=== PATIENT | male | born 1980 | race Caucasian/White ===

== ENCOUNTER 2018-03-12 11:33 | Inpatient (IN) | payer OTHER ==
[2018-03-12] MEDS ORDERED: Ondansetron 4 MG/2 ML SDV IVPUSH ONE (11:58)
[2018-03-12] MEDS ORDERED: Ketorolac 30 MG/ML SDV IVPUSH ONE (11:58)
[2018-03-12] MEDS ORDERED: Pantoprazole 40 MG Vial IVPUSH ONE (11:58)
[2018-03-12] MEDS ORDERED: Sodium Chloride 0.9% 2.5 ML Syringe FLUSH PRN (11:58)
[2018-03-12] MEDS ORDERED: Sodium Chloride 0.9% 1,000 ML IV ONE (11:58)
[2018-03-12] MEDS ORDERED: Sodium Chloride 0.9% 10 ML Syringe FLUSH PRN (11:58)
--- NOTE | 2018-03-12 12:01 | EDM.PDOC ---
ED HPI GENERAL MEDICAL PROBLEM - General Chief Complaint: Abdominal Pain Stated Complaint: ABDOMINAL PAIN Time Seen by Provider: 03/12/18 11:50 - History of Present Illness INITIAL COMMENTS - FREE TEXT/NARRATIVE: HISTORY AND PHYSICAL: History of present illness: The patient is a 37-year-old male with no stated medical problems who presents with complaints of epigastric pain that radiates to the right and left and around to his back that started at 11 PM last night. Patient says he had a normal day yesterday with no systemic complaints, no cough fever abdominal pain vomiting diarrhea, and had a small bowel movement yesterday that was normal for him and a normal one the day before that was not black or bloody the patient does not drink alcohol and has no history of food intolerance. He says he ate normally and went to bed and began to have this pain as he was trying to go to sleep. He had no chest pain or shortness of breath but he has had the sweats but no documented fever. The patient has a history of using large amounts of Tums in the past and has never been evaluated by a physician. He has no GI or abdominal surgical history. Review of systems: As per history of present illness and below otherwise all systems reviewed and negative. Past medical history: As per history of present illness and as reviewed below otherwise noncontributory. Surgical history: As per history of present illness and as reviewed below otherwise noncontributory. Social history: No reported history of drug or alcohol abuse. Family history: As per history of present illness and as reviewed below otherwise noncontributory. Physical exam: General: Well-developed well-nourished man who is nontoxic and vital signs are noted by me HEENT: Atraumatic, normocephalic, pupils reactive, negative for conjunctival pallor or scleral icterus, mucous membranes moist, throat clear, neck supple, nontender, trachea midline. Lungs: Clear to auscultation, breath sounds equal bilaterally, chest nontender. Heart: S1S2, regular rate and rhythm no overt murmurs Abdomen: Soft, nondistended, the patient has discrete tenderness in the epigastrium and right upper quadrant but no lower abdominal tenderness. There is no rebound or guarding and bowel sounds are hypoactive. Negative for masses or hepatosplenomegaly. Negative for costovertebral tenderness. Pelvis: Stable nontender. Genitourinary: Deferred. Rectal: Deferred. Extremities: Atraumatic, negative for cords or calf pain. Neurovascular unremarkable. Neuro: Awake, alert, oriented. Cranial nerves II through XII unremarkable. Cerebellum unremarkable. Motor and sensory unremarkable throughout. Exam nonfocal. Diagnostics: EKG CBC CMP amylase lipase H. pylori UA abdominal x-rays CT scan of the abdomen and pelvis Therapeutics: IV fluids Protonix Toradol Dilaudid Zosyn She tells nursing that the medications took the edge off but he is still having discomfort. I will give him some Dilaudid and plan on CT scan of the abdomen and pelvis to evaluate gallbladder pancreas and upper abdominal areas CT scan results were discussed with the patient and with our surgeon certified lactation counselor Dr. Christian at 1532. Patient is aware that he needs antibiotics and Dr. Christian would like Zosyn. She is currently finishing a clinic and will see the patient and anesthesia is here to evaluate the patient. He last ate toast at 10 AM. Impression: Acute appendicitis, H. pylori positive Definitive disposition and diagnosis as appropriate pending reevaluation and review of above. abdominal pain Pain Score (Numeric/FACES): 9 - Related Data Allergies Allergy/AdvReac Type Severity Reaction Status Date / Time No Known Allergies Allergy Verified 03/12/18 11:45 Home Meds: Home Meds . [No Known Home Meds] 03/12/18 [History] Past Medical History - Past Health History Medical/Surgical History: Denies Medical/Surgical History - Infectious Disease History Infectious Disease History: Reports: Chicken Pox Social & Family History - Family History Family Medical History: Noncontributory - Tobacco Use Smoking Status *Q: Never Smoker - Recreational Drug Use Recreational Drug Use: No ED ROS GENERAL - Review of Systems Review Of Systems: ROS reveals no pertinent complaints other than HPI. ED EXAM, GENERAL - Physical Exam Exam: See Below (See dictation) Course - Vital Signs Last Recorded V/S: Last Vital Signs Temp 36.7 C 03/12/18 11:45 Pulse 70 03/12/18 13:30 Resp 16 03/12/18 13:30 BP 112/64 03/12/18 13:30 Pulse Ox 96 03/12/18 13:30 - Orders/Labs/Meds Orders: Active Orders 24 hr Category Date Time Status Patient Status [ADT] Stat ADT 03/12/18 15:36 Ordered EKG Documentation Completion [RC] STAT Care 03/12/18 11:57 Active UA W/MICROSCOPIC [URIN] Stat Lab 03/12/18 13:00 Ordered Lactated Ringers @ 150 MLS/HR(1,000ml) Med 03/12/18 15:45 Ordered Lactated Ringers [Ringers, Lactated] 1,000 ml IV ASDIRECTED Piperacillin/Tazobactam [Piperacil-Tazobact] 3.375 gm Med 03/12/18 15:33 Active Sodium Chloride 0.9% [Normal Saline] 50 ml IV ONETIME Sodium Chloride 0.9% [Saline Flush] Med 03/12/18 11:58 Active 10 ml FLUSH ASDIRECTED PRN Sodium Chloride 0.9% [Saline Flush] Med 03/12/18 11:58 Active 2.5 ml FLUSH ASDIRECTED PRN Saline Lock Insert [OM.PC] Stat Oth 03/12/18 11:57 Ordered Medication Orders Piperacillin Sod/Tazobactam (Sod 3.375 gm/ Sodium Chloride) 50 mls @ 100 mls/ hr IV ONETIME ONE Stop: 03/12/18 16:02 Lactated Ringer's (Ringers, Lactated) 1,000 mls @ 150 mls/hr IV ASDIRECTED MARCIA Sodium Chloride (Saline Flush) 10 ml FLUSH ASDIRECTED PRN PRN Reason: Keep Vein Open Sodium Chloride (Saline Flush) 2.5 ml FLUSH ASDIRECTED PRN PRN Reason: Keep Vein Open Labs: Laboratory Tests 03/12/18 03/12/18 03/12/18 Range/Units 11:50 11:50 11:50 WBC 10.82 (4.0-11.0) K/uL RBC 4.62 (4.50-5.90) M/uL Hgb 14.5 (13.0-17.0) g/dL Hct 40.4 (38.0-50.0) % MCV 87.4 (80.0-98.0) fL MCH 31.4 (27.0-32.0) pg MCHC 35.9 (31.0-37.0) g/dL RDW Std Deviation 39.3 (28.0-62.0) fl RDW Coeff of Justino 12 (11.0-15.0) % Plt Count 228 (150-400) K/uL MPV 9.10 (7.40-12.00) fL Neut % (Auto) 84.1 H (48.0-80.0) % Lymph % (Auto) 5.8 L (16.0-40.0) % [place] % (Auto) 9.7 (0.0-15.0) % Eos % (Auto) 0.3 (0.0-7.0) % Baso % (Auto) 0.1 (0.0-1.5) % Neut # (Auto) 9.1 H (1.4-5.7) K/uL Lymph # (Auto) 0.6 (0.6-2.4) K/uL [place] # (Auto) 1.1 H (0.0-0.8) K/uL Eos # (Auto) 0.0 (0.0-0.7) K/uL Baso # (Auto) 0.0 (0.0-0.1) K/uL Nucleated RBC % 0.0 /100WBC Nucleated RBCs # 0 K/uL Sodium 138 (136-148) mmol/L Potassium 3.9 (3.5-5.1) mmol/L Chloride 104 (98-107) mmol/L Carbon Dioxide 22.6 (21.0-32.0) mmol/L BUN 17 (7.0-18.0) mg/dL Creatinine 1.3 (0.8-1.3) mg/dL Est Cr Clr Drug Dosing 78.77 mL/min Estimated GFR (MDRD) > 60.0 ml/min Glucose 130 H (74-106) mg/dL Calcium 8.8 (8.5-10.1) mg/dL Total Bilirubin 0.8 (0.2-1.0) mg/dL AST 19 (15-37) IU/L ALT 33 (14-63) IU/L Alkaline Phosphatase 63 (46-116) U/L Total Protein 7.5 (6.4-8.2) g/dL Albumin 4.3 (3.4-5.0) g/dL Globulin 3.2 (2.0-3.5) g/dL Albumin/Globulin Ratio 1.3 (1.3-2.8) Amylase 40 (25-115) U/L Lipase 152 (73-393) U/L Urine Color Urine Appearance Urine pH (5.0-8.0) Ur Specific [place] (1.001-1.035) Urine Protein (NEGATIVE) mg/dL Urine Glucose (UA) (NEGATIVE) mg/dL Urine Ketones (NEGATIVE) mg/dL Urine Occult Blood (NEGATIVE) Urine Nitrite (NEGATIVE) Urine Bilirubin (NEGATIVE) Urine Urobilinogen (<2.0) EU/dL Ur Leukocyte Esterase (NEGATIVE) Urine RBC (0-2/HPF) Urine WBC (0-5/HPF) Ur Epithelial Cells (NONE-FEW) Urine Bacteria (NEGATIVE) H. pylori IgG Antibody POSITIVE H (NEG) 03/12/18 Range/Units 13:00 WBC (4.0-11.0) K/uL RBC (4.50-5.90) M/uL Hgb (13.0-17.0) g/dL Hct (38.0-50.0) % MCV (80.0-98.0) fL MCH (27.0-32.0) pg MCHC (31.0-37.0) g/dL RDW Std Deviation (28.0-62.0) fl RDW Coeff of Justino (11.0-15.0) % Plt Count (150-400) K/uL MPV (7.40-12.00) fL Neut % (Auto) (48.0-80.0) % Lymph % (Auto) (16.0-40.0) % [place] % (Auto) (0.0-15.0) % Eos % (Auto) (0.0-7.0) % Baso % (Auto) (0.0-1.5) % Neut # (Auto) (1.4-5.7) K/uL Lymph # (Auto) (0.6-2.4) K/uL [place] # (Auto) (0.0-0.8) K/uL Eos # (Auto) (0.0-0.7) K/uL Baso # (Auto) (0.0-0.1) K/uL Nucleated RBC % /100WBC Nucleated RBCs # K/uL Sodium (136-148) mmol/L Potassium (3.5-5.1) mmol/L Chloride (98-107) mmol/L Carbon Dioxide (21.0-32.0) mmol/L BUN (7.0-18.0) mg/dL Creatinine (0.8-1.3) mg/dL Est Cr Clr Drug Dosing mL/min Estimated GFR (MDRD) ml/min Glucose (74-106) mg/dL Calcium (8.5-10.1) mg/dL Total Bilirubin (0.2-1.0) mg/dL AST (15-37) IU/L ALT (14-63) IU/L Alkaline Phosphatase (46-116) U/L Total Protein (6.4-8.2) g/dL Albumin (3.4-5.0) g/dL Globulin (2.0-3.5) g/dL Albumin/Globulin Ratio (1.3-2.8) Amylase (25-115) U/L Lipase (73-393) U/L Urine Color YELLOW Urine Appearance CLEAR Urine pH 7.5 (5.0-8.0) Ur Specific [place] 1.020 (1.001-1.035) Urine Protein NEGATIVE (NEGATIVE) mg/dL Urine Glucose (UA) NEGATIVE (NEGATIVE) mg/dL Urine Ketones NEGATIVE (NEGATIVE) mg/dL Urine Occult Blood NEGATIVE (NEGATIVE) Urine Nitrite NEGATIVE (NEGATIVE) Urine Bilirubin NEGATIVE (NEGATIVE) Urine Urobilinogen 0.2 (<2.0) EU/dL Ur Leukocyte Esterase NEGATIVE (NEGATIVE) Urine RBC 0-1 (0-2/HPF) Urine WBC 0-1 (0-5/HPF) Ur Epithelial Cells RARE (NONE-FEW) Urine Bacteria RARE (NEGATIVE) H. pylori IgG Antibody (NEG) Meds: Medications Generic Name Dose Route Start Last Admin Trade Name Freq PRN Reason Stop Dose Admin Piperacillin Sod/Tazobactam 50 mls @ 100 mls/hr 03/12/18 15:33 Sod 3.375 gm/ Sodium Chloride IV 03/12/18 16:02 ONETIME ONE Lactated Ringer's 1,000 mls @ 150 mls/hr 03/12/18 15:45 Ringers, Lactated IV ASDIRECTED MARCIA Sodium Chloride 10 ml 03/12/18 11:58 Saline Flush FLUSH ASDIRECTED PRN Keep Vein Open Sodium Chloride 2.5 ml 03/12/18 11:58 Saline Flush FLUSH ASDIRECTED PRN Keep Vein Open Discontinued Medications Generic Name Dose Route Start Last Admin Trade Name Freq PRN Reason Stop Dose Admin Hydromorphone HCl 1 mg 03/12/18 13:41 Dilaudid IVPUSH 03/12/18 13:42 ONETIME ONE Hydromorphone HCl 1 mg 03/12/18 13:48 03/12/18 14:03 Dilaudid IVPUSH 03/12/18 13:49 1 mg ONETIME ONE Administration Sodium Chloride 1,000 mls @ 999 mls/hr 03/12/18 11:58 03/12/18 12:18 Normal Saline IV 03/12/18 12:58 999 mls/hr STAT ONE Administration Iopamidol 100 ml 03/12/18 14:29 03/12/18 14:37 Isovue Multipack-370 (76%) IVPUSH 03/12/18 14:30 100 ml ONETIME STA Administration Ketorolac Tromethamine 30 mg 03/12/18 11:58 03/12/18 12:18 Toradol IVPUSH 03/12/18 11:59 30 mg ONETIME ONE Administration Ondansetron HCl 4 mg 03/12/18 11:58 03/12/18 12:19 Zofran IVPUSH 03/12/18 11:59 Not Given ONETIME ONE Pantoprazole Sodium 80 mg 03/12/18 11:58 03/12/18 12:18 Protonix Iv IVPUSH 03/12/18 11:59 80 mg .BOLUS ONE Administration Departure - Departure Time of Disposition: 15:39 Disposition: DC/Tfer to Other 70 Condition: Good Clinical Impression: H. pylori infection Appendicitis Qualifiers: Appendicitis type: acute appendicitis Acute appendicitis type: unspecified acute appendicitis type Qualified Code(s): K35.80 - Unspecified acute appendicitis - Discharge Information Referrals: PCP,None [Primary Care Provider] - Forms: ED Department Discharge - My Orders Last 24 Hours: My Active Orders 03/12/18 11:57 EKG Documentation Completion [RC] STAT Saline Lock Insert [OM.PC] Stat 03/12/18 11:58 Sodium Chloride 0.9% [Saline Flush] 10 ml FLUSH ASDIRECTED PRN Sodium Chloride 0.9% [Saline Flush] 2.5 ml FLUSH ASDIRECTED PRN 03/12/18 13:00 UA W/MICROSCOPIC [URIN] Stat 03/12/18 15:33 Piperacillin/Tazobactam [Piperacil-Tazobact] 3.375 gm Sodium Chloride 0.9% [ Normal Saline] 50 ml IV ONETIME 03/12/18 15:36 Patient Status [ADT] Stat 03/12/18 15:45 Lactated Ringers @ 150 MLS/HR(1,000ml) Lactated Ringers [Ringers, Lactated] 1, 000 ml IV ASDIRECTED - Assessment/Plan Last 24 Hours: My Active Orders 03/12/18 11:57 EKG Documentation Completion [RC] STAT Saline Lock Insert [OM.PC] Stat 03/12/18 11:58 Sodium Chloride 0.9% [Saline Flush] 10 ml FLUSH ASDIRECTED PRN Sodium Chloride 0.9% [Saline Flush] 2.5 ml FLUSH ASDIRECTED PRN 03/12/18 13:00 UA W/MICROSCOPIC [URIN] Stat 03/12/18 15:33 Piperacillin/Tazobactam [Piperacil-Tazobact] 3.375 gm Sodium Chloride 0.9% [ Normal Saline] 50 ml IV ONETIME 03/12/18 15:36 Patient Status [ADT] Stat 03/12/18 15:45 Lactated Ringers @ 150 MLS/HR(1,000ml) Lactated Ringers [Ringers, Lactated] 1, 000 ml IV ASDIRECTED
[2018-03-12 13:10] LABS: CHLORIDE,CL 104 mmol/L (98-107); SODIUM,NA 138 mmol/L (136-148)
[2018-03-12] MEDS ORDERED: HYDROmorphone 1 MG/ML Syringe IVPUSH ONE ×2 (13:41→13:48)
--- NOTE | 2018-03-12 13:56 | CR ---
EXAMINATION: PA chest and AP and upright abdomen HISTORY: Pain. FINDINGS: The trachea is midline. The cardiomediastinal silhouette is within normal limits. No pulmonary infilt rates, effusions or pneumothorax. Osseous structures appear unremarkable. No free air under the diaphragm. There is a nonobstructive bowel gas pattern. No abnormal calcificati ons identified. No organomegaly. Visualized osseous structures appear intact. IMPRESSION: Grossly unremarkable chest and abdominal films.
[2018-03-12] MEDS ORDERED: Iopamidol 755 MG/ML 500 ML Multipack Bottle IVPUSH STA (14:29)
--- NOTE | 2018-03-12 15:03 | CT ---
CT of the abdomen and pelvis with contrast. HISTORY: Pain TECHNIQUE: Axial CT images were obtained of the abdomen and pelvis following administration of 100 mL of Isovue-370 in the left and without complication. Coronal and sagittal reconstructions obtained. FINDINGS: Dependent atelectasis noted within the lung bases. The liver, spleen, adrenal glands, and pancreas ap pear normal. Gallbladder is normal. No bulky retroperitoneal lymphadenopathy or abdominal ascites. The kidneys enhance and function symmetrically without evidence of obstructive uropathy. The large and small bowel are normal in caliber without evidence of obstruction. No focal pericolonic inflammation or stranding. The appendix is enlarged at 1.3 cm with periappendiceal stranding. The ap pendix is retrocecal. No evidence of perforation or an abscess at this time. No pelvic lymphadenopath y or significant free pelvic fluid. No suspicious osseous abnormalities identified. IMPRESSION: 1. Acute appendicitis without evidence of rupture.
[2018-03-12] MEDS ORDERED: Piperacillin/Tazobactam 3.375 GM in Sodium Chloride 0.9% 50 ML IV ONE (15:33)
[2018-03-12] MEDS ORDERED: Lactated Ringers 1,000 ML IV SCH (15:45)
[2018-03-12] MEDS ORDERED: Lidocaine 2% 5 ML SDV ONE (16:37)
[2018-03-12] MEDS ORDERED: Rocuronium 10 MG/ML 10 ML Syringe ONE (16:37)
[2018-03-12] MEDS ORDERED: Ondansetron 4 MG/2 ML SDV ONE (16:37)
[2018-03-12] MEDS ORDERED: Propofol 200 MG/20 ML SDV ONE ×6 (16:38→20:10)
[2018-03-12] MEDS ORDERED: Midazolam 1 MG/ML 2 ML SDV ONE ×2 (16:38→17:22)
[2018-03-12] MEDS ORDERED: fentaNYL 250 MCG/5 ML SDV ONE (16:38)
[2018-03-12] MEDS ORDERED: Bupivacaine 0.5% 10 ML SDV ONE (16:54)
--- NOTE | 2018-03-12 16:54 | PCM.PREANE ---
Preanesthetic Assessment - Anesthesia/Transfusion/Family Hx Anesthesia History: No Prior Anesthesia Family History of Anesthesia Reaction: Yes (Mother and Aunt both have had MH events) Transfusion History: No Prior Transfusion(s) - Review of Systems General: Weakness, Fatigue Pulmonary: No Symptoms Cardiovascular: No Symptoms Gastrointestinal: Abdominal Pain Neurological: No Symptoms Other: Reports: None - Physical Assessment O2 Sat by Pulse Oximetry: 96 Respiratory Rate: 16 Vital Signs: Last Vital Signs Temp 98.0 F 03/12/18 11:45 Pulse 78 03/12/18 16:00 Resp 16 03/12/18 16:00 BP 112/59 L 03/12/18 16:00 Pulse Ox 96 03/12/18 16:00 Height: 5 ft 10 in Weight: 97.522 kg ASA Class: 1E Mental Status: Alert & Oriented x3 Airway Class: Mallampati = 2 Dentition: Reports: Normal Dentition Thyro-Mental Finger Breadths: 2 Mouth Opening Finger Breadths: 3 ROM/Head Extension: Full Lungs: Clear to Auscultation, Normal Respiratory Effort Cardiovascular: Regular Rate, Regular Rhythm - Lab Values: Laboratory Last Values WBC 10.82 K/uL (4.0-11.0) 03/12/18 11:50 RBC 4.62 M/uL (4.50-5.90) 03/12/18 11:50 Hgb 14.5 g/dL (13.0-17.0) 03/12/18 11:50 Hct 40.4 % (38.0-50.0) 03/12/18 11:50 MCV 87.4 fL (80.0-98.0) 03/12/18 11:50 MCH 31.4 pg (27.0-32.0) 03/12/18 11:50 MCHC 35.9 g/dL (31.0-37.0) 03/12/18 11:50 RDW Std Deviation 39.3 fl (28.0-62.0) 03/12/18 11:50 RDW Coeff of Justino 12 % (11.0-15.0) 03/12/18 11:50 Plt Count 228 K/uL (150-400) 03/12/18 11:50 MPV 9.10 fL (7.40-12.00) 03/12/18 11:50 Neut % (Auto) 84.1 % (48.0-80.0) H 03/12/18 11:50 Lymph % (Auto) 5.8 % (16.0-40.0) L 03/12/18 11:50 [place] % (Auto) 9.7 % (0.0-15.0) 03/12/18 11:50 Eos % (Auto) 0.3 % (0.0-7.0) 03/12/18 11:50 Baso % (Auto) 0.1 % (0.0-1.5) 03/12/18 11:50 Neut # (Auto) 9.1 K/uL (1.4-5.7) H 03/12/18 11:50 Lymph # (Auto) 0.6 K/uL (0.6-2.4) 03/12/18 11:50 [place] # (Auto) 1.1 K/uL (0.0-0.8) H 03/12/18 11:50 Eos # (Auto) 0.0 K/uL (0.0-0.7) 03/12/18 11:50 Baso # (Auto) 0.0 K/uL (0.0-0.1) 03/12/18 11:50 Nucleated RBC % 0.0 /100WBC 03/12/18 11:50 Nucleated RBCs # 0 K/uL 03/12/18 11:50 Sodium 138 mmol/L (136-148) 03/12/18 11:50 Potassium 3.9 mmol/L (3.5-5.1) 03/12/18 11:50 Chloride 104 mmol/L (98-107) 03/12/18 11:50 Carbon Dioxide 22.6 mmol/L (21.0-32.0) 03/12/18 11:50 BUN 17 mg/dL (7.0-18.0) 03/12/18 11:50 Creatinine 1.3 mg/dL (0.8-1.3) 03/12/18 11:50 Est Cr Clr Drug Dosing 78.77 mL/min 03/12/18 11:50 Estimated GFR (MDRD) > 60.0 ml/min 03/12/18 11:50 Glucose 130 mg/dL (74-106) H 03/12/18 11:50 Calcium 8.8 mg/dL (8.5-10.1) 03/12/18 11:50 Total Bilirubin 0.8 mg/dL (0.2-1.0) 03/12/18 11:50 AST 19 IU/L (15-37) 03/12/18 11:50 ALT 33 IU/L (14-63) 03/12/18 11:50 Alkaline Phosphatase 63 U/L (46-116) 03/12/18 11:50 Total Protein 7.5 g/dL (6.4-8.2) 03/12/18 11:50 Albumin 4.3 g/dL (3.4-5.0) 03/12/18 11:50 Globulin 3.2 g/dL (2.0-3.5) 03/12/18 11:50 Albumin/Globulin Ratio 1.3 (1.3-2.8) 03/12/18 11:50 Amylase 40 U/L (25-115) 03/12/18 11:50 Lipase 152 U/L (73-393) 03/12/18 11:50 Urine Color YELLOW 03/12/18 13:00 Urine Appearance CLEAR 03/12/18 13:00 Urine pH 7.5 (5.0-8.0) 03/12/18 13:00 Ur Specific [place] 1.020 (1.001-1.035) 03/12/18 13:00 Urine Protein NEGATIVE mg/dL (NEGATIVE) 03/12/18 13:00 Urine Glucose (UA) NEGATIVE mg/dL (NEGATIVE) 03/12/18 13:00 Urine Ketones NEGATIVE mg/dL (NEGATIVE) 03/12/18 13:00 Urine Occult Blood NEGATIVE (NEGATIVE) 03/12/18 13:00 Urine Nitrite NEGATIVE (NEGATIVE) 03/12/18 13:00 Urine Bilirubin NEGATIVE (NEGATIVE) 03/12/18 13:00 Urine Urobilinogen 0.2 EU/dL (<2.0) 03/12/18 13:00 Ur Leukocyte Esterase NEGATIVE (NEGATIVE) 03/12/18 13:00 Urine RBC 0-1 (0-2/HPF) 03/12/18 13:00 Urine WBC 0-1 (0-5/HPF) 03/12/18 13:00 Ur Epithelial Cells RARE (NONE-FEW) 03/12/18 13:00 Urine Bacteria RARE (NEGATIVE) 03/12/18 13:00 H. pylori IgG Antibody POSITIVE (NEG) H 03/12/18 11:50 - Allergies Allergies/Adverse Reactions: Allergies Allergy/AdvReac Type Severity Reaction Status Date / Time desflurane Allergy Severe Anaphylactic Verified 03/12/18 16:04 Shock sevoflurane Allergy Severe Anaphylactic Verified 03/12/18 16:04 Shock succinylcholine Allergy Severe Anaphylactic Verified 03/12/18 16:04 Shock - Anesthesia Plan Free Text/Narrative:: After initially interviewing the patient I was called back to the ER by the RN. The patients mother had arrived and states both she and a niece of hers have had Malignant Hyperthermia under general anesthesia. I explained a new anesthetic plan that would include TIVA and other NON-MH triggers. Patient understands and wishes to proceed at this time. ANESTHESIA MACHINE PREP -Anesthesia circuit replaced with new one -Soda-sorb replaced x 2 -15LPM O2 flush of the anesthesia machine was performed for >70 minutes -Sevoflurane and Desflurane vaporizers were removed from the anesthesia machine -OR team was informed of the patients MH history -Esophageal temperature probe will be placed after induction for invasive temperature monitoring - Acknowledgements Anesthesia Type Planned: General Anesthesia (TIVA only, NON-MH triggers only) Pt an Appropriate Candidate for the Planned Anesthesia: Yes Alternatives and Risks of Anesthesia Discussed w Pt/Guardian: Yes Pt/Guardian Understands and Agrees with Anesthesia Plan: Yes PreAnesthesia Questionnaire - Past Health History Medical/Surgical History: Denies Medical/Surgical History HEENT History: Reports: None Cardiovascular History: Reports: None Respiratory History: Reports: None Gastrointestinal History: Reports: Other (See Below) (Acute appendicitis) Genitourinary History: Reports: None Musculoskeletal History: Reports: None Neurological History: Reports: None Psychiatric History: Reports: None Endocrine/Metabolic History: Reports: Obesity/BMI 30+ Hematologic History: Reports: None Immunologic History: Reports: None Oncologic (Cancer) History: Reports: None Dermatologic History: Reports: None - Infectious Disease History Infectious Disease History: Reports: Chicken Pox - SUBSTANCE USE Smoking Status *Q: Never Smoker Recreational Drug Use History: No - HOME MEDS Home Medications: Home Meds . [No Known Home Meds] 03/12/18 [History] - CURRENT (IN HOUSE) MEDS Current Meds: Current Medications Lactated Ringer's (Ringers, Lactated) 1,000 mls @ 150 mls/hr IV ASDIRECTED MARCIA Last Admin: 03/12/18 15:45 Dose: 150 mls/hr Sodium Chloride (Saline Flush) 10 ml FLUSH ASDIRECTED PRN PRN Reason: Keep Vein Open Sodium Chloride (Saline Flush) 2.5 ml FLUSH ASDIRECTED PRN PRN Reason: Keep Vein Open Discontinued Medications Fentanyl (Sublimaze) Confirm Administered Dose 250 mcg .ROUTE .STK-MED ONE Stop: 03/12/18 16:39 Hydromorphone HCl (Dilaudid) 1 mg IVPUSH ONETIME ONE Stop: 03/12/18 13:42 Hydromorphone HCl (Dilaudid) 1 mg IVPUSH ONETIME ONE Stop: 03/12/18 13:49 Last Admin: 03/12/18 14:03 Dose: 1 mg Sodium Chloride (Normal Saline) 1,000 mls @ 999 mls/hr IV STAT ONE Stop: 03/12/18 12:58 Last Admin: 03/12/18 12:18 Dose: 999 mls/hr Piperacillin Sod/Tazobactam (Sod 3.375 gm/ Sodium Chloride) 50 mls @ 100 mls/ hr IV ONETIME ONE Stop: 03/12/18 16:02 Last Admin: 03/12/18 15:45 Dose: 100 mls/hr Iopamidol (Isovue Multipack-370 (76%)) 100 ml IVPUSH ONETIME STA Stop: 03/12/18 14:30 Last Admin: 03/12/18 14:37 Dose: 100 ml Ketorolac Tromethamine (Toradol) 30 mg IVPUSH ONETIME ONE Stop: 03/12/18 11:59 Last Admin: 03/12/18 12:18 Dose: 30 mg Lidocaine (Xylocaine-Mpf 2%) Confirm Administered Dose 5 ml .ROUTE .STK-MED ONE Stop: 03/12/18 16:38 Midazolam HCl (Versed 1 Mg/Ml) Confirm Administered Dose 2 mg .ROUTE .STK-MED ONE Stop: 03/12/18 16:39 Ondansetron HCl (Zofran) 4 mg IVPUSH ONETIME ONE Stop: 03/12/18 11:59 Last Admin: 03/12/18 12:19 Dose: Not Given Ondansetron HCl (Zofran) Confirm Administered Dose 4 mg .ROUTE .STK-MED ONE Stop: 03/12/18 16:38 Pantoprazole Sodium (Protonix Iv) 80 mg IVPUSH .BOLUS ONE Stop: 03/12/18 11:59 Last Admin: 03/12/18 12:18 Dose: 80 mg Propofol (Diprivan 20 Ml) Confirm Administered Dose 1,200 mg .ROUTE .STK-MED ONE Stop: 03/12/18 16:39 Propofol (Diprivan 20 Ml) Confirm Administered Dose 200 mg .ROUTE .STK-MED ONE Stop: 03/12/18 16:44 Rocuronium [place] (Zemuron) Confirm Administered Dose 100 mg .ROUTE .STK-MED ONE Stop: 03/12/18 16:38
--- NOTE | 2018-03-12 16:57 | PCM.HP ---
H&P History of Present Illness - General Date of Service: 03/12/18 Admit Problem/Dx: Admission Diagnosis/Problem Admission Diagnosis/Problem Acute appendicitis Source of Information: Patient History Limitations: Reports: No Limitations - History of Present Illness Initial Comments - Free Text/Narative: Patient is a 37 year old male who developed abdominal pain last evening. It was located along the epigastric area. He was nauseated, but did not vomit. It was sharp and radiated to the rest of the abdomen. It then became more centralized. He was unable to sleep. The pain was made worse with movement. This morning the pain became sharper and crampy. It was located in the RLQ and radiated to his right flank. He denies fevers and chills. He last ate at 10 am. He had toast and some water. He came to the ER. His WBC was normal. He was tested for H pylori which was positive. A CT of the abdomen pelvis was performed that showed acute appendicitis. There was no evidence of rupture but the appendix appears retrocecal. abdominal pain Pain Score (Numeric/FACES): 9 - Related Data Allergies/Adverse Reactions: Allergies Allergy/AdvReac Type Severity Reaction Status Date / Time desflurane Allergy Severe Anaphylactic Verified 03/12/18 16:04 Shock sevoflurane Allergy Severe Anaphylactic Verified 03/12/18 16:04 Shock succinylcholine Allergy Severe Anaphylactic Verified 03/12/18 16:04 Shock Home Medications: Home Meds . [No Known Home Meds] 03/12/18 [History] Past Medical History - Past Health History Medical/Surgical History: Denies Medical/Surgical History - Infectious Disease History Infectious Disease History: Reports: Chicken Pox Social & Family History - Family History Other Family History: Mother has COPD and there is a possible family history of malignant hyperthermia - Tobacco Use Smoking Status *Q: Never Smoker - Recreational Drug Use Recreational Drug Use: No H&P Review of Systems - Review of Systems: Review Of Systems: ROS reveals no pertinent complaints other than HPI. Exam - Exam Exam: See Below - Vital Signs Vital Signs: Last Vital Signs Temp 36.7 C 03/12/18 11:45 Pulse 78 03/12/18 16:00 Resp 16 03/12/18 16:00 BP 112/59 L 03/12/18 16:00 Pulse Ox 96 03/12/18 16:00 Weight: 97.522 kg - Exam General: Alert, Oriented, Cooperative HEENT: Conjunctiva Clear, Mucosa Moist & [place], Posterior Pharynx Clear Neck: Supple, Trachea Midline Lungs: Clear to Auscultation, Normal Respiratory Effort Cardiovascular: Regular Rate, Regular Rhythm GI/Abdominal Exam: Soft, No Distention, Tender (RLQ), Other (Rebound and guarding along right flank). No: Guarding, Rigid, Rebound - Patient Data Lab Results Last 24 hrs: Laboratory Results - last 24 hr 03/12/18 03/12/18 03/12/18 Range/Units 11:50 11:50 11:50 WBC 10.82 (4.0-11.0) K/uL RBC 4.62 (4.50-5.90) M/uL Hgb 14.5 (13.0-17.0) g/dL Hct 40.4 (38.0-50.0) % MCV 87.4 (80.0-98.0) fL MCH 31.4 (27.0-32.0) pg MCHC 35.9 (31.0-37.0) g/dL RDW Std Deviation 39.3 (28.0-62.0) fl RDW Coeff of Justino 12 (11.0-15.0) % Plt Count 228 (150-400) K/uL MPV 9.10 (7.40-12.00) fL Neut % (Auto) 84.1 H (48.0-80.0) % Lymph % (Auto) 5.8 L (16.0-40.0) % Sampson % (Auto) 9.7 (0.0-15.0) % Eos % (Auto) 0.3 (0.0-7.0) % Baso % (Auto) 0.1 (0.0-1.5) % Neut # (Auto) 9.1 H (1.4-5.7) K/uL Lymph # (Auto) 0.6 (0.6-2.4) K/uL Sampson # (Auto) 1.1 H (0.0-0.8) K/uL Eos # (Auto) 0.0 (0.0-0.7) K/uL Baso # (Auto) 0.0 (0.0-0.1) K/uL Nucleated RBC % 0.0 /100WBC Nucleated RBCs # 0 K/uL Sodium 138 (136-148) mmol/L Potassium 3.9 (3.5-5.1) mmol/L Chloride 104 (98-107) mmol/L Carbon Dioxide 22.6 (21.0-32.0) mmol/L BUN 17 (7.0-18.0) mg/dL Creatinine 1.3 (0.8-1.3) mg/dL Est Cr Clr Drug Dosing 78.77 mL/min Estimated GFR (MDRD) > 60.0 ml/min Glucose 130 H (74-106) mg/dL Calcium 8.8 (8.5-10.1) mg/dL Total Bilirubin 0.8 (0.2-1.0) mg/dL AST 19 (15-37) IU/L ALT 33 (14-63) IU/L Alkaline Phosphatase 63 (46-116) U/L Total Protein 7.5 (6.4-8.2) g/dL Albumin 4.3 (3.4-5.0) g/dL Globulin 3.2 (2.0-3.5) g/dL Albumin/Globulin Ratio 1.3 (1.3-2.8) Amylase 40 (25-115) U/L Lipase 152 (73-393) U/L Urine Color Urine Appearance Urine pH (5.0-8.0) Ur Specific [place] (1.001-1.035) Urine Protein (NEGATIVE) mg/dL Urine Glucose (UA) (NEGATIVE) mg/dL Urine Ketones (NEGATIVE) mg/dL Urine Occult Blood (NEGATIVE) Urine Nitrite (NEGATIVE) Urine Bilirubin (NEGATIVE) Urine Urobilinogen (<2.0) EU/dL Ur Leukocyte Esterase (NEGATIVE) Urine RBC (0-2/HPF) Urine WBC (0-5/HPF) Ur Epithelial Cells (NONE-FEW) Urine Bacteria (NEGATIVE) H. pylori IgG Antibody POSITIVE H (NEG) 03/12/18 Range/Units 13:00 WBC (4.0-11.0) K/uL RBC (4.50-5.90) M/uL Hgb (13.0-17.0) g/dL Hct (38.0-50.0) % MCV (80.0-98.0) fL MCH (27.0-32.0) pg MCHC (31.0-37.0) g/dL RDW Std Deviation (28.0-62.0) fl RDW Coeff of Justino (11.0-15.0) % Plt Count (150-400) K/uL MPV (7.40-12.00) fL Neut % (Auto) (48.0-80.0) % Lymph % (Auto) (16.0-40.0) % Sampson % (Auto) (0.0-15.0) % Eos % (Auto) (0.0-7.0) % Baso % (Auto) (0.0-1.5) % Neut # (Auto) (1.4-5.7) K/uL Lymph # (Auto) (0.6-2.4) K/uL Sampson # (Auto) (0.0-0.8) K/uL Eos # (Auto) (0.0-0.7) K/uL Baso # (Auto) (0.0-0.1) K/uL Nucleated RBC % /100WBC Nucleated RBCs # K/uL Sodium (136-148) mmol/L Potassium (3.5-5.1) mmol/L Chloride (98-107) mmol/L Carbon Dioxide (21.0-32.0) mmol/L BUN (7.0-18.0) mg/dL Creatinine (0.8-1.3) mg/dL Est Cr Clr Drug Dosing mL/min Estimated GFR (MDRD) ml/min Glucose (74-106) mg/dL Calcium (8.5-10.1) mg/dL Total Bilirubin (0.2-1.0) mg/dL AST (15-37) IU/L ALT (14-63) IU/L Alkaline Phosphatase (46-116) U/L Total Protein (6.4-8.2) g/dL Albumin (3.4-5.0) g/dL Globulin (2.0-3.5) g/dL Albumin/Globulin Ratio (1.3-2.8) Amylase (25-115) U/L Lipase (73-393) U/L Urine Color YELLOW Urine Appearance CLEAR Urine pH 7.5 (5.0-8.0) Ur Specific [place] 1.020 (1.001-1.035) Urine Protein NEGATIVE (NEGATIVE) mg/dL Urine Glucose (UA) NEGATIVE (NEGATIVE) mg/dL Urine Ketones NEGATIVE (NEGATIVE) mg/dL Urine Occult Blood NEGATIVE (NEGATIVE) Urine Nitrite NEGATIVE (NEGATIVE) Urine Bilirubin NEGATIVE (NEGATIVE) Urine Urobilinogen 0.2 (<2.0) EU/dL Ur Leukocyte Esterase NEGATIVE (NEGATIVE) Urine RBC 0-1 (0-2/HPF) Urine WBC 0-1 (0-5/HPF) Ur Epithelial Cells RARE (NONE-FEW) Urine Bacteria RARE (NEGATIVE) H. pylori IgG Antibody (NEG) Result Diagrams: 03/12/18 11:50 03/12/18 11:50 - Problem List (1) Appendicitis SNOMED Code(s): 55055075 ICD Code: K37 - UNSPECIFIED APPENDICITIS Status: Acute Current Visit: Yes Qualifiers: Appendicitis type: acute appendicitis Acute appendicitis type: unspecified acute appendicitis type Qualified Code(s): K35.80 - Unspecified acute appendicitis (2) H. pylori infection SNOMED Code(s): 481976566 ICD Code: A04.8 - OTHER SPECIFIED BACTERIAL INTESTINAL INFECTIONS Status: Acute Current Visit: Yes Problem List Initiated/Reviewed/Updated: Yes Orders Last 24hrs: Active Orders 24 hr Category Date Time Status Patient Status [ADT] Stat ADT 03/12/18 15:36 Active EKG Documentation Completion [RC] STAT Care 03/12/18 11:57 Active UA W/MICROSCOPIC [URIN] Stat Lab 03/12/18 13:00 Ordered Lactated Ringers [Ringers, Lactated] 1,000 ml Med 03/12/18 15:45 Active IV ASDIRECTED Sodium Chloride 0.9% [Saline Flush] Med 03/12/18 11:58 Active 10 ml FLUSH ASDIRECTED PRN Sodium Chloride 0.9% [Saline Flush] Med 03/12/18 11:58 Active 2.5 ml FLUSH ASDIRECTED PRN Saline Lock Insert [OM.PC] Stat Oth 03/12/18 11:57 Ordered Medication Orders Lactated Ringer's (Ringers, Lactated) 1,000 mls @ 150 mls/hr IV ASDIRECTED MARCIA Last Admin: 03/12/18 15:45 Dose: 150 mls/hr Sodium Chloride (Saline Flush) 10 ml FLUSH ASDIRECTED PRN PRN Reason: Keep Vein Open Sodium Chloride (Saline Flush) 2.5 ml FLUSH ASDIRECTED PRN PRN Reason: Keep Vein Open Assessment/Plan Comment:: We discussed the pathophysiology of appendicitis. The treatment is appendectomy. We discussed the laparoscopic and open approaches to the case. I will start laparoscopically but should I be unable to complete it safely I will convert to open. I explained the different treatment approaches to ruptured and non-ruptured appendicitis. We discussed the risks including bleeding, infection , or damage to surrounding structures. He verbalized understanding and wishes to proceed. He will stay in house overnight and I will treat him with 2 weeks of a prev pac for the h. pylori infection.
[2018-03-12] MEDS ORDERED: HYDROmorphone 2 MG/ML SDV ONE (17:33)
[2018-03-12] MEDS ORDERED: fentaNYL 100 MCG/2 ML SDV ONE (19:44)
[2018-03-12] MEDS ORDERED: fentaNYL 100 MCG/2 ML SDV IVPUSH PRN (19:57)
[2018-03-12] MEDS ORDERED: Glycopyrrolate 0.2 MG/ML SDV ONE (20:20)
[2018-03-12] MEDS ORDERED: Neostigmine Methylsulfate 1 MG/ML 5 ML Syringe ONE (20:20)
[2018-03-12] MEDS ORDERED: Docusate Sodium 100 MG Cap PO PRN (20:34)
[2018-03-12] MEDS ORDERED: Morphine 10 MG/ML Syringe IVPUSH PRN (20:34)
[2018-03-12] MEDS ORDERED: Ondansetron 4 MG/2 ML SDV IVPUSH PRN (20:34)
[2018-03-12] MEDS ORDERED: diphenhydrAMINE 50 MG/ML SDV IVPUSH PRN (20:34)
[2018-03-12] MEDS ORDERED: Ketorolac 10 MG Tab PO SCH (20:45)
--- NOTE | 2018-03-12 20:45 | PCM.OPNOTE ---
- General Post-Op/Procedure Note Date of Surgery/Procedure: 03/12/18 Operative Procedure(s): Laparoscopic converted to open appendectomy Findings: Retrocecal base of the appendix. Appendix was inflammed, enlarged and vaughan appearing but no evidence of rupture. Pre Op Diagnosis: Appendicitis Post-Op Diagnosis: same Anesthesia Technique: General ET Tube Primary Surgeon: Samantha Christian Secondary Surgeon: Everett Cruz Reason Licensed Marine Engineer Was Necessary: Difficult anatomy Fluid Replacement, Intraop: 3,800 Output, Urine Amount: 195 EBL in mLs: 30 Condition: Stable
[2018-03-12] MEDS ORDERED: Meperidine PF 25 MG/ML Syringe IVPUSH ONE (21:13)
--- NOTE | 2018-03-12 21:44 | OR ---
SURGEON: JAY TREVIÑO MD DATE OF PROCEDURE: 03/12/2018 PREOPERATIVE DIAGNOSIS: Acute appendicitis. POSTOPERATIVE DIAGNOSIS: Acute appendicitis. PROCEDURE PERFORMED: Laparoscopic converted to open appendectomy. FURNACE AND WASH EQUIPMENT OPERATOR: Everett Cruz M.D. FLUIDS: 3800 mL of crystalloid. URINE OUTPUT: 195 mL. ESTIMATED BLOOD LOSS: 30 mL. FINDINGS: Retrocecal appendix with base of the appendix in a retrocecal position. Appendix enlarged, inflamed and khan appearing, but not grossly perforated. COMPLICATIONS: None. INDICATIONS: The patient is a 37-year-old male, who presented to the emergency room [facility] with a one-day history of abdominal pain. He had no evidence of leukocytosis, but was found to be H. pylori positive. The emergency room physician ordered a CT that showed evidence of a retrocecal appendix that appeared to be enlarged and inflamed. On physical exam, the patient was tender to palpation with rebound and guarding along the right flank. I described the pathophysiology of appendicitis with the patient. I explained to him the treatment for appendicitis is appendectomy. We discussed the laparoscopic and open approaches. I will attempt this laparoscopically, but should I be unable to perform it safely, I will convert it to open. I explained the risks including bleeding, infection, or damage to surrounding structures. The patient verbalized understanding and wishes to proceed. PROCEDURE IN DETAIL: The patient was brought into the OR and placed on the OR table in supine position. A time-out was completed verifying the patient's name, age, date of , allergies, and procedure to be performed. General endotracheal anesthesia was induced. The left arm was tucked to the patient's side and a Orellana catheter placed. The abdomen was then prepped and draped in usual sterile fashion. I anesthetized an area 3 fingerbreadths below the left subcostal margin within the midclavicular line with 0.5% Marcaine plain. A 1 cm incision was made in the skin using an 11 blade. A 5 mm optical trocar was used to gain entry into the abdomen in the left upper quadrant. All layers of the abdominal wall were visualized upon entry. The abdomen was insufflated. I then placed a 5 mm 30-degree scope into the abdomen. I inspected the area underneath my initial trocar placement. No damage to surrounding structures was noted. A 5 mm trocar was placed under direct visualization just lateral and left to the umbilicus. A 12 mm trocar was placed in the left lower quadrant under direct visualization. The patient was placed into Trendelenburg position and airplaned slightly to the left. I turned my attention to the right lower quadrant. I identified the ascending colon. I followed the teniae down to the cecum. No appendix was noted along the anterior aspect of the cecum. I brushed the surrounding small bowel out of the way and attempted to roll the colon medially. After several attempts, I was able to identify the tip of the appendix. This was grasped with an atraumatic grasper and elevated. The appendix itself was grossly inflamed, enlarged, and slightly khan appearing. It had attachments to the underside of the colon. These were able to be dissected off the appendix using gentle blunt dissection. I was then able to elevate the distal half of the appendix into my field of view. A Harmonic Scalpel was used to take down the appendiceal mesentery distally to proximally to mobilize more of my appendix. The closer I got to the base of the appendix, the more difficult it was for me to identify structures. I attempted to manipulate the appendix to allow visualization of its base. Despite careful dissection and manipulation of the appendix, I was not able to identify the base. It appeared to be not only retrocecal but inserting there as well. The decision was made to convert to open to allow better visualization of the base of the appendix. Before converting to open, I turned my attention to the 12 mm port site. This was removed and I closed the fascia at this site with an 0 Vicryl suture using a Tony Zavala passing device. I palpated the 12 mm port site and the fascia appeared to be adequately closed. I left my 5 mm trocars in and left the insufflation on. I palpated over the tip of appendix and identified where I would need to place my right lower quadrant oblique incision. I kept an atraumatic grasper on the tip of the appendix, so I could locate the appendix once I converted to open. I anesthetized the area over my right lower quadrant incision with 0.5% Marcaine plain. A 10 blade was used to make a right lower quadrant oblique incision. Cautery was used to dissect down to the level of the external oblique. This was opened using cautery. I then muscles and dissected down to the level of the peritoneum. The peritoneum was elevated and incised sharply with the Metzenbaum scissors. Entry into the abdomen was confirmed with the release of my insufflation. The gas was then turned off. I was able to identify the tip of my appendix and the atraumatic grasper to which it was attached. I placed a [place] on the appendix and removed my atraumatic grasper. Retractors were placed and I medially rotated the ascending colon. Dr. Everett Cruz was called in to assist with the case, given the difficult exposure. Once he scrubbed in, I was able to take down the retroperitoneal attachments of the cecum and identified the base of appendix. Harmonic Scalpel was used to transect the appendiceal artery proximal to the appendix itself. The base of the appendix and its insertion point were completely retrocecal. Once this was completely cleared away, a TA 60 stapling device was used to staple across the base of the appendix. To ensure good closure, I placed an Endoloop just distal to my staple line. The harmonic was then used to resect the appendix just distal to this. The appendix was then passed off the field and sent to pathology. Again, there was no evidence of rupture and there was no purulent material within the abdomen. The abdomen was irrigated copiously with normal saline, which was suctioned out. I then closed the layers of the abdominal wall with a running 3-0 Vicryl stitch in the peritoneum and layers of the fascia were closed with interrupted 0 Vicryl sutures. Darlene's fascia was closed with a running 3-0 Vicryl stitch. The skin was then closed with estephanie. I closed skin on laparoscopic port sites with estephanie. Sterile dressings were applied. All counts were complete and correct at the end of the case. The patient was transferred to PACU in stable condition. SAVANNAH SENA /[id number] BRYAN
--- NOTE | 2018-03-12 22:10 | PCM.POSTAN ---
POST ANESTHESIA ASSESSMENT - MENTAL STATUS Mental Status: Alert, Oriented - VITAL SIGNS Pulse Rate: 70 SaO2: 99 Resp Rate: 12 Blood Pressure: 115/70 - RESPIRATORY Respiratory Status: Respiratory Rate WNL, Airway Patent, O2 Saturation Stable - CARDIOVASCULAR CV Status: Pulse Rate WNL, Blood Pressure Stable - GASTROINTESTINAL GI Status: No Symptoms - POST OP HYDRATION Hydration Status: Adequate & Stable - OBSERVATIONS Free Text/Narrative:: Patient to ICU per Dr Christian. Several episodes of severe MACKENZIE were observed and the patient was placed on BiPAP. Decreased urine output is also noted in PACU.
[2018-03-12] MEDS: Lactated Ringers 1,000 ML IV SCH (22:41)
[2018-03-12] MEDS: Sucralfate 1 GM Tab PO SCH (22:49)
[2018-03-12] MEDS: Cyclobenzaprine 5 MG Tab PO SCH (22:58)
--- NOTE | 2018-03-12 23:02 | PCM.SN ---
- Free Text/Narrative Note: Patient monitored closely in PACU. He received a large amount of propofol during the case due to the family history of malignant hyperthermia. He was able to be extubated ~ 45 minutes after arrival in the PACU. He was somnolent and obstructing. According to the family he snores at home and his brother has sleep apnea. He was placed on BIPAP with improvement in his breathing. He made 300ml of urine during the case but after the first hour in the PACU he made only 30-40 ml. His Cr was elevated pre-operatively at 1.3 and his Cr was 17. He had not been drinking much fluid prior to the case. He recieved a 1.5 L bolus while in PACU. His urine appears clear yellow with some sediment. His vitals were stable in PACU. A repeat CBC and BMP was performed. His hgb dropped from 14.5 to 13.1. His BUN is down from 17 to 13. His creatinine is slightly up to 1.4 from 1.3. He was admitted to the ICU for close monitoring. His UOP over the last 30 minutes is ~ 20-30ml. A urine creatinine and sodium were sent to calculate his fractional excretion of sodium. A lactate and repeat BUN/Cr will be sent at midnight. LR is going at 125ml/hr. Will monitor closely.
[2018-03-12] MEDS ORDERED: Acetaminophen 325 MG Tab PO ONE (23:03)
[2018-03-13] MEDS: Cyclobenzaprine 5 MG Tab PO SCH ×4 (00:03→20:59)
[2018-03-13] MEDS: Piperacillin/Tazobactam 3.375 GM in Sodium Chloride 0.9% 50 ML IV SCH ×3 (00:04→15:16)
[2018-03-13] MEDS: Morphine 2 MG/ML Syringe IVPUSH PRN ×2 (00:43→16:16)
[2018-03-13] MEDS: Acetaminophen/HYDROcodone 325-5 MG Tab PO PRN ×3 (05:02→20:53)
[2018-03-13 05:58] LABS: CHLORIDE,CL 106 mmol/L (98-107); SODIUM,NA 138 mmol/L (136-148)
[2018-03-13] MEDS: Lactated Ringers 1,000 ML IV SCH ×2 (07:11→15:16)
[2018-03-13] MEDS ORDERED: Magnesium Sulfate/Water 2 GM in Premix Bag 1 BAG IV ONE (07:13)
--- NOTE | 2018-03-13 07:25 | PCM.SURGPN ---
- General Info Date of Service: 03/13/18 Date of Surgery/Procedure: 03/12/18 POD#: 1 Functional Status: Reports: Other (UOP after case marginal. Given 1.5L bolus with minimal improvement. UOP 30-50ml/hr overnight. BUN/Cr stable. BIPAP needed overnight for MACKENZIE. Awake alert and able to rest this morning without need for BIPAP. Pain controlled "as long as Im not moving". One fever post op otherwise afebrile. VSS overnight. ) - Review of Systems General: Reports: No Symptoms Pulmonary: Reports: No Symptoms Cardiovascular: Reports: No Symptoms Gastrointestinal: Reports: No Symptoms Genitourinary: Reports: No Symptoms Musculoskeletal: Reports: No Symptoms - Patient Data Vitals - Most Recent: Last Vital Signs Temp 37.9 C 03/13/18 04:00 Pulse 80 03/12/18 22:22 Resp 13 03/13/18 06:00 BP 116/57 L 03/13/18 06:00 Pulse Ox 97 03/13/18 06:00 Weight - Most Recent: 100.516 kg I&O - Last 24 Hours: Intake & Output 03/12/18 03/13/18 03/13/18 22:59 06:59 14:59 Intake Total 8800 865 Output Total 715 345 Balance 8085 520 Lab Results Last 24 Hrs: Laboratory Results - last 24 hr 03/12/18 03/12/18 03/12/18 Range/Units 11:50 11:50 11:50 WBC 10.82 (4.0-11.0) K/uL RBC 4.62 (4.50-5.90) M/uL Hgb 14.5 (13.0-17.0) g/dL Hct 40.4 (38.0-50.0) % MCV 87.4 (80.0-98.0) fL MCH 31.4 (27.0-32.0) pg MCHC 35.9 (31.0-37.0) g/dL RDW Std Deviation 39.3 (28.0-62.0) fl RDW Coeff of Justino 12 (11.0-15.0) % Plt Count 228 (150-400) K/uL MPV 9.10 (7.40-12.00) fL Neut % (Auto) 84.1 H (48.0-80.0) % Lymph % (Auto) 5.8 L (16.0-40.0) % [place] % (Auto) 9.7 (0.0-15.0) % Eos % (Auto) 0.3 (0.0-7.0) % Baso % (Auto) 0.1 (0.0-1.5) % Neut # (Auto) 9.1 H (1.4-5.7) K/uL Lymph # (Auto) 0.6 (0.6-2.4) K/uL [place] # (Auto) 1.1 H (0.0-0.8) K/uL Eos # (Auto) 0.0 (0.0-0.7) K/uL Baso # (Auto) 0.0 (0.0-0.1) K/uL Nucleated RBC % 0.0 /100WBC Nucleated RBCs # 0 K/uL Lactate (0.20-2.00) mmol/L Sodium 138 (136-148) mmol/L Potassium 3.9 (3.5-5.1) mmol/L Chloride 104 (98-107) mmol/L Carbon Dioxide 22.6 (21.0-32.0) mmol/L BUN 17 (7.0-18.0) mg/dL Creatinine 1.3 (0.8-1.3) mg/dL Est Cr Clr Drug Dosing 78.77 mL/min Estimated GFR (MDRD) > 60.0 ml/min Glucose 130 H (74-106) mg/dL Calcium 8.8 (8.5-10.1) mg/dL Phosphorus (2.6-4.7) mg/dL Magnesium (1.8-2.4) mg/dL Total Bilirubin 0.8 (0.2-1.0) mg/dL AST 19 (15-37) IU/L ALT 33 (14-63) IU/L Alkaline Phosphatase 63 (46-116) U/L Total Protein 7.5 (6.4-8.2) g/dL Albumin 4.3 (3.4-5.0) g/dL Globulin 3.2 (2.0-3.5) g/dL Albumin/Globulin Ratio 1.3 (1.3-2.8) Amylase 40 (25-115) U/L Lipase 152 (73-393) U/L Urine Color Urine Appearance Urine pH (5.0-8.0) Ur Specific [place] (1.001-1.035) Urine Protein (NEGATIVE) mg/dL Urine Glucose (UA) (NEGATIVE) mg/dL Urine Ketones (NEGATIVE) mg/dL Urine Occult Blood (NEGATIVE) Urine Nitrite (NEGATIVE) Urine Bilirubin (NEGATIVE) Urine Urobilinogen (<2.0) EU/dL Ur Leukocyte Esterase (NEGATIVE) Urine RBC (0-2/HPF) Urine WBC (0-5/HPF) Ur Epithelial Cells (NONE-FEW) Urine Bacteria (NEGATIVE) Ur Random Creatinine mg/dL Ur Random Sodium (40.0-220.0) mmol/L H. pylori IgG Antibody POSITIVE H (NEG) 03/12/18 03/12/18 03/12/18 Range/Units 13:00 22:04 22:04 WBC 8.14 (4.0-11.0) K/uL RBC 4.19 L (4.50-5.90) M/uL Hgb 13.1 (13.0-17.0) g/dL Hct 37.7 L (38.0-50.0) % MCV 90.0 (80.0-98.0) fL MCH 31.3 (27.0-32.0) pg MCHC 34.7 (31.0-37.0) g/dL RDW Std Deviation 40.5 (28.0-62.0) fl RDW Coeff of Just[place] 13 (11.0-15.0) % Plt Count 184 (150-400) K/uL MPV 8.70 (7.40-12.00) fL Neut % (Auto) (48.0-80.0) % Lymph % (Auto) (16.0-40.0) % [place] % (Auto) (0.0-15.0) % Eos % (Auto) (0.0-7.0) % Baso % (Auto) (0.0-1.5) % Neut # (Auto) (1.4-5.7) K/uL Lymph # (Auto) (0.6-2.4) K/uL [place] # (Auto) (0.0-0.8) K/uL Eos # (Auto) (0.0-0.7) K/uL Baso # (Auto) (0.0-0.1) K/uL Nucleated RBC % 0.0 /100WBC Nucleated RBCs # 0 K/uL Lactate (0.20-2.00) mmol/L Sodium 139 (136-148) mmol/L Potassium 4.0 (3.5-5.1) mmol/L Chloride 106 (98-107) mmol/L Carbon Dioxide 26.8 (21.0-32.0) mmol/L BUN 13 (7.0-18.0) mg/dL Creatinine 1.4 H (0.8-1.3) mg/dL Est Cr Clr Drug Dosing 73.14 mL/min Estimated GFR (MDRD) 56.4 ml/min Glucose 107 H (74-106) mg/dL Calcium 8.1 L (8.5-10.1) mg/dL Phosphorus (2.6-4.7) mg/dL Magnesium (1.8-2.4) mg/dL Total Bilirubin (0.2-1.0) mg/dL AST (15-37) IU/L ALT (14-63) IU/L Alkaline Phosphatase (46-116) U/L Total Protein (6.4-8.2) g/dL Albumin (3.4-5.0) g/dL Globulin (2.0-3.5) g/dL Albumin/Globulin Ratio (1.3-2.8) Amylase (25-115) U/L Lipase (73-393) U/L Urine Color YELLOW Urine Appearance CLEAR Urine pH 7.5 (5.0-8.0) Ur Specific [place] 1.020 (1.001-1.035) Urine Protein NEGATIVE (NEGATIVE) mg/dL Urine Glucose (UA) NEGATIVE (NEGATIVE) mg/dL Urine Ketones NEGATIVE (NEGATIVE) mg/dL Urine Occult Blood NEGATIVE (NEGATIVE) Urine Nitrite NEGATIVE (NEGATIVE) Urine Bilirubin NEGATIVE (NEGATIVE) Urine Urobilinogen 0.2 (<2.0) EU/dL Ur Leukocyte Esterase NEGATIVE (NEGATIVE) Urine RBC 0-1 (0-2/HPF) Urine WBC 0-1 (0-5/HPF) Ur Epithelial Cells RARE (NONE-FEW) Urine Bacteria RARE (NEGATIVE) Ur Random Creatinine mg/dL Ur Random Sodium (40.0-220.0) mmol/L H. pylori IgG Antibody (NEG) 03/12/18 03/13/18 03/13/18 Range/Units 22:50 00:25 05:18 WBC 6.93 (4.0-11.0) K/uL RBC 3.79 L (4.50-5.90) M/uL Hgb 11.9 L (13.0-17.0) g/dL Hct 33.6 L (38.0-50.0) % MCV 88.7 (80.0-98.0) fL MCH 31.4 (27.0-32.0) pg MCHC 35.4 (31.0-37.0) g/dL RDW Std Deviation 39.8 (28.0-62.0) fl RDW Coeff of [place] 12 (11.0-15.0) % Plt Count 155 (150-400) K/uL MPV 8.60 (7.40-12.00) fL Neut % (Auto) 79.0 (48.0-80.0) % Lymph % (Auto) 12.3 L (16.0-40.0) % [place] % (Auto) 7.8 (0.0-15.0) % Eos % (Auto) 0.6 (0.0-7.0) % Baso % (Auto) 0.3 (0.0-1.5) % Neut # (Auto) 5.5 (1.4-5.7) K/uL Lymph # (Auto) 0.9 (0.6-2.4) K/uL [place] # (Auto) 0.5 (0.0-0.8) K/uL Eos # (Auto) 0.0 (0.0-0.7) K/uL Baso # (Auto) 0.0 (0.0-0.1) K/uL Nucleated RBC % 0.0 /100WBC Nucleated RBCs # 0 K/uL Lactate (0.20-2.00) mmol/L Sodium (136-148) mmol/L Potassium (3.5-5.1) mmol/L Chloride (98-107) mmol/L Carbon Dioxide (21.0-32.0) mmol/L BUN 12 (7.0-18.0) mg/dL Creatinine 1.2 (0.8-1.3) mg/dL Est Cr Clr Drug Dosing 85.34 mL/min Estimated GFR (MDRD) > 60.0 ml/min Glucose (74-106) mg/dL Calcium (8.5-10.1) mg/dL Phosphorus (2.6-4.7) mg/dL Magnesium (1.8-2.4) mg/dL Total Bilirubin (0.2-1.0) mg/dL AST (15-37) IU/L ALT (14-63) IU/L Alkaline Phosphatase (46-116) U/L Total Protein (6.4-8.2) g/dL Albumin (3.4-5.0) g/dL Globulin (2.0-3.5) g/dL Albumin/Globulin Ratio (1.3-2.8) Amylase (25-115) U/L Lipase (73-393) U/L Urine Color Urine Appearance Urine pH (5.0-8.0) Ur Specific [place] (1.001-1.035) Urine Protein (NEGATIVE) mg/dL Urine Glucose (UA) (NEGATIVE) mg/dL Urine Ketones (NEGATIVE) mg/dL Urine Occult Blood (NEGATIVE) Urine Nitrite (NEGATIVE) Urine Bilirubin (NEGATIVE) Urine Urobilinogen (<2.0) EU/dL Ur Leukocyte Esterase (NEGATIVE) Urine RBC (0-2/HPF) Urine WBC (0-5/HPF) Ur Epithelial Cells (NONE-FEW) Urine Bacteria (NEGATIVE) Ur Random Creatinine 265.7 mg/dL Ur Random Sodium 115.0 (40.0-220.0) mmol/L H. pylori IgG Antibody (NEG) 03/13/18 03/13/18 Range/Units 05:18 05:18 WBC (4.0-11.0) K/uL RBC (4.50-5.90) M/uL Hgb (13.0-17.0) g/dL Hct (38.0-50.0) % MCV (80.0-98.0) fL MCH (27.0-32.0) pg MCHC (31.0-37.0) g/dL RDW Std Deviation (28.0-62.0) fl RDW Coeff of [place] (11.0-15.0) % Plt Count (150-400) K/uL MPV (7.40-12.00) fL Neut % (Auto) (48.0-80.0) % Lymph % (Auto) (16.0-40.0) % [place] % (Auto) (0.0-15.0) % Eos % (Auto) (0.0-7.0) % Baso % (Auto) (0.0-1.5) % Neut # (Auto) (1.4-5.7) K/uL Lymph # (Auto) (0.6-2.4) K/uL [place] # (Auto) (0.0-0.8) K/uL Eos # (Auto) (0.0-0.7) K/uL Baso # (Auto) (0.0-0.1) K/uL Nucleated RBC % /100WBC Nucleated RBCs # K/uL Lactate 0.6 (0.20-2.00) mmol/L Sodium 138 (136-148) mmol/L Potassium 3.7 (3.5-5.1) mmol/L Chloride 106 (98-107) mmol/L Carbon Dioxide 27.1 (21.0-32.0) mmol/L BUN 13 (7.0-18.0) mg/dL Creatinine 1.3 (0.8-1.3) mg/dL Est Cr Clr Drug Dosing 78.77 mL/min Estimated GFR (MDRD) > 60.0 ml/min Glucose 103 (74-106) mg/dL Calcium 7.9 L (8.5-10.1) mg/dL Phosphorus 3.8 (2.6-4.7) mg/dL Magnesium 1.5 L (1.8-2.4) mg/dL Total Bilirubin (0.2-1.0) mg/dL AST (15-37) IU/L ALT (14-63) IU/L Alkaline Phosphatase (46-116) U/L Total Protein (6.4-8.2) g/dL Albumin (3.4-5.0) g/dL Globulin (2.0-3.5) g/dL Albumin/Globulin Ratio (1.3-2.8) Amylase (25-115) U/L Lipase (73-393) U/L Urine Color Urine Appearance Urine pH (5.0-8.0) Ur Specific [place] (1.001-1.035) Urine Protein (NEGATIVE) mg/dL Urine Glucose (UA) (NEGATIVE) mg/dL Urine Ketones (NEGATIVE) mg/dL Urine Occult Blood (NEGATIVE) Urine Nitrite (NEGATIVE) Urine Bilirubin (NEGATIVE) Urine Urobilinogen (<2.0) EU/dL Ur Leukocyte Esterase (NEGATIVE) Urine RBC (0-2/HPF) Urine WBC (0-5/HPF) Ur Epithelial Cells (NONE-FEW) Urine Bacteria (NEGATIVE) Ur Random Creatinine mg/dL Ur Random Sodium (40.0-220.0) mmol/L H. pylori IgG Antibody (NEG) Med Orders - Current: Current Medications Hydrocodone Bitart/Acetaminophen ([place] 325-5 Mg) 2 tab PO Q4H PRN PRN Reason: Pain (moderate 4-6) Last Admin: 03/13/18 05:02 Dose: 2 tab Cyclobenzaprine HCl (Flexeril) 5 mg PO TID [facility] Last Admin: 03/13/18 06:12 Dose: 5 mg Diphenhydramine HCl (Benadryl) 25 mg IVPUSH Q4H PRN PRN Reason: Itching Docusate Sodium (Colace) 100 mg PO BID PRN PRN Reason: Constipation Fentanyl (Sublimaze) 50 mcg IVPUSH Q5M PRN PRN Reason: Pain (severe 7-10) Stop: 03/13/18 19:57 Lactated Ringer's (Ringers, Lactated) 1,000 mls @ [facility] Admin: 03/12/18 15:45 Dose: 150 mls/hr Lactated Ringer's (Ringers, Lactated) 1,000 mls @ 125 [facility]ls[facility] Last Admin: 03/13/18 07:11 Dose: 125 mls/hr Piperacillin Sod/Tazobactam (Sod 3.375 gm/ Sodium Chloride) 50 mls @ 100 mls/ hr IV Q8H [facility] Last Admin: 03/13/18 00:04 Dose: 100 mls/hr Magnesium Sulfate 2 gm/ Premix 50 mls @ 50 mls/hr IV ONETIME ONE Stop: 03/13/18 08:12 Morphine Sulfate (Morphine) 2 mg IVPUSH Q1H PRN PRN Reason: Pain (severe 7-10) Last Admin: 03/13/18 00:43 Dose: 2 mg Multivitamins/Minerals/Vitamin C (Tab-A-Rosalino) 1 tab PO BEDTIME [facility] Ondansetron HCl (Zofran) 4 mg IVPUSH Q6H PRN PRN Reason: Nausea/Vomiting Pantoprazole Sodium (Protonix) 40 mg PO BIDAC [facility] Sodium Chloride (Saline Flush) 10 ml FLUSH ASDIRECTED PRN PRN Reason: Keep Vein Open Sodium Chloride (Saline Flush) 2.5 ml FLUSH ASDIRECTED PRN PRN Reason: Keep Vein Open Sucralfate (Carafate) 1 gm PO QIDACANDBED [facility] Last Admin: 03/12/18 22:49 Dose: Not Given Discontinued Medications Acetaminophen (Tylenol) 650 mg PO NOW ONE Stop: 03/12/18 23:04 Last Admin: 03/13/18 00:03 Dose: 650 mg Bupivacaine HCl (Sensorcaine-Mpf 0.5%) Confirm Administered Dose 20 ml .ROUTE .STK-MED ONE Stop: 03/12/18 16:55 Fentanyl (Sublimaze) Confirm Administered Dose 250 mcg .ROUTE .STK-MED ONE Stop: 03/12/18 16:39 Fentanyl (Sublimaze) Confirm Administered Dose 100 mcg .ROUTE .STK-MED ONE Stop: 03/12/18 19:45 Glycopyrrolate (Robinul) Confirm Administered Dose 0.4 mg .ROUTE .STK-MED ONE Stop: 03/12/18 20:21 Hydromorphone HCl (Dilaudid) 1 mg IVPUSH ONETIME ONE Stop: 03/12/18 13:42 Hydromorphone HCl (Dilaudid) 1 mg IVPUSH ONETIME ONE Stop: 03/12/18 13:49 Last Admin: 03/12/18 14:03 Dose: 1 mg Hydromorphone HCl (Dilaudid) Confirm Administered Dose 2 mg .ROUTE .STK-MED ONE Stop: 03/12/18 17:34 Sodium Chloride (Normal Saline) 1,000 mls @ 999 mls/hr IV STAT ONE Stop: 03/12/18 12:58 Last Admin: 03/12/18 12:18 Dose: 999 mls/hr Piperacillin Sod/Tazobactam (Sod 3.375 gm/ Sodium Chloride) 50 mls @ 100 mls/ hr IV ONETIME ONE Stop: 03/12/18 16:02 Last Admin: 03/12/18 15:45 Dose: 100 mls/hr Iopamidol (Isovue Multipack-370 (76%)) 100 ml IVPUSH ONETIME STA Stop: 03/12/18 14:30 Last Admin: 03/12/18 14:37 Dose: 100 ml Ketorolac Tromethamine (Toradol) 30 mg IVPUSH ONETIME ONE Stop: 03/12/18 11:59 Last Admin: 03/12/18 12:18 Dose: 30 mg Ketorolac Tromethamine (Toradol) 10 mg PO Q6H [facility] Stop: 03/17/18 20:46 Last Admin: 03/12/18 22:50 Dose: Not Given Lidocaine (Xylocaine-Mpf 2%) Confirm Administered Dose 5 ml .ROUTE .STK-MED ONE Stop: 03/12/18 16:38 Meperidine HCl (Demerol) 25 mg IVPUSH ONETIME ONE Stop: 03/12/18 21:14 Last Admin: 03/12/18 22:50 Dose: Not Given Midazolam HCl (Versed 1 Mg/Ml) Confirm Administered Dose 2 mg .ROUTE .STK-MED ONE Stop: 03/12/18 16:39 Midazolam HCl (Versed 1 Mg/Ml) Confirm Administered Dose 2 mg .ROUTE .STK-MED ONE Stop: 03/12/18 17:23 Morphine Sulfate (Morphine) 2 mg IVPUSH Q1H PRN PRN Reason: Pain (severe 7-10) Neostigmine Methylsulfate (Neostigmine) Confirm Administered Dose 5 mg .ROUTE .STK-MED ONE Stop: 03/12/18 20:21 Ondansetron HCl (Zofran) 4 mg IVPUSH ONETIME ONE Stop: 03/12/18 11:59 Last Admin: 03/12/18 12:19 Dose: Not Given Ondansetron HCl (Zofran) Confirm Administered Dose 4 mg .ROUTE .STK-MED ONE Stop: 03/12/18 16:38 Pantoprazole Sodium (Protonix Iv) 80 mg IVPUSH .BOLUS ONE Stop: 03/12/18 11:59 Last Admin: 03/12/18 12:18 Dose: 80 mg Propofol (Diprivan 20 Ml) Confirm Administered Dose 1,200 mg .ROUTE .STK-MED ONE Stop: 03/12/18 16:39 Propofol (Diprivan 20 Ml) Confirm Administered Dose 200 mg .ROUTE .STK-MED ONE Stop: 03/12/18 16:44 Propofol (Diprivan 20 Ml) Confirm Administered Dose 400 mg .ROUTE .STK-MED ONE Stop: 03/12/18 18:18 Propofol (Diprivan 20 Ml) Confirm Administered Dose 600 mg .ROUTE .STK-MED ONE Stop: 03/12/18 18:49 Propofol (Diprivan 20 Ml) Confirm Administered Dose 600 mg .ROUTE .STK-MED ONE Stop: 03/12/18 19:23 Propofol (Diprivan 20 Ml) Confirm Administered Dose 400 mg .ROUTE .STK-MED ONE Stop: 03/12/18 20:11 Rocuronium [place] (Zemuron) Confirm Administered Dose 100 mg .ROUTE .STK-MED ONE Stop: 03/12/18 16:38 - Exam Wound/Incisions: Healing Well, Dressing Dry and Intact Quality Assessment: Supplemental Oxygen General: Alert, Oriented HEENT: Pupils Equal Neck: Supple Lungs: Clear to Auscultation, Normal Respiratory Effort Cardiovascular: Regular Rate, Regular Rhythm GI/Abdominal Exam: Soft, Non-Tender, No Distention, Other (UOP clear yellow. No sediment. ) Skin: Warm, Dry, Intact Neurological: No New Focal Deficit Psy/Mental Status: Alert, Normal Affect, Normal Mood - Problem List & Annotations (1) Appendicitis SNOMED Code(s): 28490761 Code(s): K37 - UNSPECIFIED APPENDICITIS Status: Acute Current Visit: Yes Qualifiers: Appendicitis type: acute appendicitis Acute appendicitis type: unspecified acute appendicitis type Qualified Code(s): K35.80 - Unspecified acute appendicitis (2) H. pylori infection SNOMED Code(s): 943889302 Code(s): A04.8 - OTHER SPECIFIED BACTERIAL INTESTINAL INFECTIONS Status: Acute Current Visit: Yes - Problem List Review Problem List Initiated/Reviewed/Updated: Yes - My Orders Last 24 Hours: Active Orders 24 hr Category Date Time Status Patient Status [ADT] Routine ADT 03/12/18 20:34 Active Bradycardia-Neuroaxis [employer] [RC] ROUTINE Care 03/12/18 19:57 Active Hypertension-Neuroaxis [employer] [RC] ROUTINE Care 03/12/18 19:57 Active Hypotension-Neuroaxis [employer] [RC] ROUTINE Care 03/12/18 19:57 Active Intake and Output [RC] Q2HR Care 03/12/18 20:35 Active Oxygen Therapy [RC] PRN Care 03/12/18 20:34 Active Pulse Oximetry [RC] CONTINUOUS Care 03/12/18 20:37 Active RT Incentive Spirometry [RC] ASDIRECTED Care 03/12/18 20:34 Active Up ad Janel [RC] ASDIRECTED Care 03/12/18 20:34 Active Vital Signs [RC] Q1H Care 03/12/18 20:34 Active Clear Liquid Diet [DIET] Diet 03/13/18 Breakfast Active BASIC METABOLIC PANEL,BMP [CHEM] AM Lab 03/14/18 05:11 Ordered CBC WITH AUTO DIFF [HEME] AM Lab 03/14/18 05:11 Ordered CBC WITH AUTO DIFF [HEME] AM Lab 03/15/18 05:11 Ordered CBC WITH AUTO DIFF [HEME] AM Lab 03/16/18 05:11 Ordered CBC WITH AUTO DIFF [HEME] AM Lab 03/17/18 05:11 Ordered CREATININE,URINE RAND [URCHEM] Stat Lab 03/12/18 22:50 COMP MAGNESIUM [CHEM] AM Lab 03/14/18 05:11 Ordered MAGNESIUM [CHEM] AM Lab 03/15/18 05:11 Ordered MAGNESIUM [CHEM] AM Lab 03/16/18 05:11 Ordered MAGNESIUM [CHEM] AM Lab 03/17/18 05:11 Ordered PHOSPHORUS [CHEM] AM Lab 03/14/18 05:11 Ordered PHOSPHORUS [CHEM] AM Lab 03/15/18 05:11 Ordered PHOSPHORUS [CHEM] AM Lab 03/16/18 05:11 Ordered PHOSPHORUS [CHEM] AM Lab 03/17/18 05:11 Ordered SODIUM,URINE RANDOM [URCHEM] Routine Lab 03/12/18 22:50 COMP UA W/MICROSCOPIC [URIN] Stat Lab 03/12/18 13:00 Ordered Acetaminophen/HYDROcodone [[place] 325-5 MG] Med 03/12/18 20:34 Active 2 tab PO Q4H PRN Cyclobenzaprine [Flexeril] Med 03/12/18 22:00 Active 5 mg PO TID Docusate Sodium [Colace] Med 03/12/18 20:34 Active 100 mg PO BID PRN Lactated Ringers [Ringers, Lactated] 1,000 ml Med 03/12/18 15:45 Active IV ASDIRECTED Lactated Ringers [Ringers, Lactated] 1,000 ml Med 03/12/18 20:45 Active IV ASDIRECTED Magnesium Sulfate/Water [Magnesium Sulfate 2 GM in Med 03/13/18 07:13 Active Water 50 ML] 2 gm Premix Bag 1 bag IV ONETIME Morphine Med 03/13/18 00:28 Active 2 mg IVPUSH Q1H PRN Multivitamins [Tab-A-Rosalino] Med 03/13/18 21:00 Active 1 tab PO BEDTIME Ondansetron [Zofran] Med 03/12/18 20:34 Active 4 mg IVPUSH Q6H PRN Pantoprazole [ProTONIX] Med 03/13/18 07:30 Active 40 mg PO BIDAC Piperacillin/Tazobactam [Piperacil-Tazobact] 3.375 gm Med 03/13/18 00:00 Active Sodium Chloride 0.9% [Normal Saline] 50 ml IV Q8H Sodium Chloride 0.9% [Saline Flush] Med 03/12/18 11:58 Active 10 ml FLUSH ASDIRECTED PRN Sodium Chloride 0.9% [Saline Flush] Med 03/12/18 11:58 Active 2.5 ml FLUSH ASDIRECTED PRN Sucralfate [Carafate] Med 03/12/18 21:00 Active 1 gm PO QIDACANDBED diphenhydrAMINE [Benadryl] Med 03/12/18 20:34 Active 25 mg IVPUSH Q4H PRN fentaNYL [Sublimaze] Med 03/12/18 19:57 Active 50 mcg IVPUSH Q5M PRN Saline Lock Insert [OM.PC] Stat Oth 03/12/18 11:57 Ordered Resuscitation Status Routine Resus Stat 03/12/18 20:34 Ordered Medication Orders Hydrocodone Bitart/Acetaminophen ([place] 325-5 Mg) 2 tab PO Q4H PRN PRN Reason: Pain (moderate 4-6) Last Admin: 03/13/18 05:02 Dose: 2 tab Cyclobenzaprine HCl (Flexeril) 5 mg PO TID [facility] Last Admin: 03/13/18 06:12 Dose: 5 mg Admin: 03/13/18 00:03 Dose: 5 mg Admin: 03/12/18 22:58 Dose: Diphenhydramine HCl (Benadryl) 25 mg IVPUSH Q4H PRN PRN Reason: Itching Docusate Sodium (Colace) 100 mg PO BID PRN PRN Reason: Constipation Fentanyl (Sublimaze) 50 mcg IVPUSH Q5M PRN PRN Reason: Pain (severe 7-10) Stop: 03/13/18 19:57 Lactated Ringer's (Ringers, Lactated) 1,000 mls @ 150 mls/hr IV ASDIRECTED [facility] Last Admin: 03/12/18 15:45 Dose: 150 mls/hr Lactated Ringer's (Ringers, Lactated) 1,000 mls @ 125 mls/hr IV ASDIRECTED [facility] Last Admin: 03/13/18 07:11 Dose: 125 mls/hr Infusion: 03/13/18 06:41 Dose: 125 mls/hr Admin: 03/12/18 22:41 Dose: 125 mls/hr Piperacillin Sod/Tazobactam (Sod 3.375 gm/ Sodium Chloride) 50 mls @ 100 mls/ hr IV Q8H [facility] Last Admin: 03/13/18 00:04 Dose: 100 mls/hr Magnesium Sulfate 2 gm/ Premix 50 mls @ 50 mls/hr IV ONETIME ONE Stop: 03/13/18 08:12 Morphine Sulfate (Morphine) 2 mg IVPUSH Q1H PRN PRN Reason: Pain (severe 7-10) Last Admin: 03/13/18 00:43 Dose: 2 mg Multivitamins/Minerals/Vitamin C (Tab-A-Rosalino) 1 tab PO BEDTIME [facility] Ondansetron HCl (Zofran) 4 mg IVPUSH Q6H PRN PRN Reason: Nausea/Vomiting Pantoprazole Sodium (Protonix) 40 mg PO BIDAC [facility] Sodium Chloride (Saline Flush) 10 ml FLUSH ASDIRECTED PRN PRN Reason: Keep Vein Open Sodium Chloride (Saline Flush) 2.5 ml FLUSH ASDIRECTED PRN PRN Reason: Keep Vein Open Sucralfate (Carafate) 1 gm PO QIDACANDBED [facility] Last Admin: 03/12/18 22:49 Dose: - Plan Plan (Free Text/Narrative):: Pain: Scheduled flexeril. PRN norco and IV morphine. CV: Stable. Pulm: Encourage OOB activity and IS use. GI: Advance diet to clears. Continue IV LR @ 125ml/hr for now. Replace Mag Renal: Creatinine on wellness draw in Sep 2016 was 1.2. Cr stable at 1.3. BUN 13. Keep lopez for now to closely watch UOP. If stable may remove lopez later this afternoon. ID: Continue IV zosyn until tolerating regular diet. Does have H pylori infection. Will transition to clarithromycin, amoxicillin later on. Pantoprazole BID and carafate for stomach. Heme: Hgb down to 11.9 mostly dilutional. Will continue to monitor. Px: SCDs
[2018-03-13] MEDS: Pantoprazole 40 MG Tab.CR PO SCH ×2 (07:27→16:00)
[2018-03-13] MEDS: Sucralfate 1 GM Tab PO SCH ×4 (07:27→21:02)
--- NOTE | 2018-03-13 07:52 | PCM48HPAN ---
Post Anesthesia Note - EVALUATION WITHIN 48HRS OF ANESTHETIC Vital Signs in Normal Range: Yes Patient Participated in Evaluation: No (Asleep) Respiratory Function Stable: Yes (2l/nc) Airway Patent: Yes Cardiovascular Function Stable: Yes Hydration Status Stable: Yes Pain Control Satisfactory: Yes Nausea and Vomiting Control Satisfactory: Yes Mental Status Recovered: Yes Pulse Rate: 70 Resp Rate: 14 Blood Pressure: 115/70 - COMMENTS/OBSERVATIONS Free Text/Narrative:: Report from RN that patient is doing well with pain score of 3/10 and no problems
[2018-03-13] MEDS ORDERED: Multivitamin Tab PO SCH (21:00)
[2018-03-14] MEDS: Piperacillin/Tazobactam 3.375 GM in Sodium Chloride 0.9% 50 ML IV SCH ×2 (00:44→07:22)
[2018-03-14] MEDS: Acetaminophen/HYDROcodone 325-5 MG Tab PO PRN ×3 (00:52→12:32)
[2018-03-14] MEDS: Cyclobenzaprine 5 MG Tab PO SCH ×2 (05:34→13:01)
[2018-03-14 06:04] LABS: CHLORIDE,CL 109 mmol/L (98-107); SODIUM,NA 141 mmol/L (136-148)
[2018-03-14] MEDS: Pantoprazole 40 MG Tab.CR PO SCH (06:46)
[2018-03-14] MEDS: Sucralfate 1 GM Tab PO SCH ×2 (06:46→10:59)
--- NOTE | 2018-03-14 08:59 | PCM.DCSUM1 ---
Discharge Summary - Hospital Course Free Text/Narrative:: 37 year old male who presented with abdominal pain. It was located along the epigastric area. He was nauseated, but did not vomit. It was sharp and radiated to the rest of the abdomen. It then became more centralized. He was unable to sleep. The pain was made worse with movement. The next morning the pain became sharper and crampy. It was located in the RLQ and radiated to his right flank. He came to the ER. His WBC was normal. He was tested for H pylori which was positive. A CT of the abdomen pelvis was performed that showed acute appendicitis. There was no evidence of rupture but the appendix was retrocecal. He was taken to the OR and underwent a laparoscopic converted to open appendectomy. Patient was monitored closely in PACU. He received a large amount of propofol during the case due to the family history of malignant hyperthermia. He was able to be extubated ~ 45 minutes after arrival in the PACU. He was somnolent and obstructing. He was placed on BIPAP with improvement in his breathing. He made 300ml of urine during the case but after the first hour in the PACU he made only 30-40 ml. His Cr was elevated pre-operatively at 1.3 and his Cr was 17. He had not been drinking much fluid prior to the case. He recieved a 1.5 L bolus. His vitals were stable in PACU. A repeat CBC and BMP was performed. His hgb dropped from 14.5 to 13.1. His BUN is down from 17 to 13. His creatinine was slightly up to 1.4 from 1.3. He was admitted to the ICU for close monitoring. His UOP over the last 30 minutes is ~ 20-30ml. A urine creatinine and sodium were sent to calculate his fractional excretion of sodium. It was 0.4% indicating pre-renal CLAUDIA. Lacate was normal and repeat BUN/ Cr at midnight was improved. LR was going at 125ml/hr. By the next morning his UOP had improved and his BUN and Cr were stable. He did well from that point on. His lopez was removed and his diet advanced. He had a low grade temperature and was given norco. This controlled his fever. He got up from bed. His vitals remained stable. He started passing gas and his diet was advanced without difficulty. He did not need bipap last evening. He was transitioned to po medications for his H pylori infection. He was cleared for discharge. - Discharge Data Discharge Date: 03/14/18 Discharge Disposition: Home, Self-Care 01 Condition: Stable - Discharge Diagnosis/Problem(s) (1) Appendicitis SNOMED Code(s): 05727608 ICD Code: K37 - UNSPECIFIED APPENDICITIS Status: Acute Current Visit: Yes Qualifiers: Appendicitis type: acute appendicitis Acute appendicitis type: unspecified acute appendicitis type Qualified Code(s): K35.80 - Unspecified acute appendicitis (2) H. pylori infection SNOMED Code(s): 026668780 ICD Code: A04.8 - OTHER SPECIFIED BACTERIAL INTESTINAL INFECTIONS Status: Acute Current Visit: Yes - Patient Summary/Data Operative Procedure(s) Performed: Laparoscopic converted to open appendectomy - Patient Instructions Diet: Regular Diet as Tolerated, Drink 8-10+ Glasses/Day Activity: No Lifting Over 20 Pounds (for six weeks ), Rest and Relax Today Driving: Do Not Drive (for one week ) Showering/Bathing: May Shower, No Tub Bathing/Swimming (for two weeks) Notify Provider of: Fever, Increased Pain, Nausea and/or Vomiting Other/Special Instructions: You will see Dr. Everett Cruz in clinic in 1 week to remove your estephanie. - Discharge Plan Home Medications: Home Meds . [No Known Home Meds] 03/12/18 [History] Patient Handouts: Open Appendectomy, Care After Referrals: Samantha Christian MD [Physician] - - Discharge Summary/Plan Comment DC Time >30 min.: No - General Info Date of Service: 03/14/18 Functional Status: Reports: Pain Controlled, Tolerating Diet, Ambulating, Urinating - Review of Systems General: Reports: No Symptoms HEENT: Reports: No Symptoms Pulmonary: Reports: No Symptoms Cardiovascular: Reports: No Symptoms Gastrointestinal: Reports: No Symptoms - Patient Data Vitals - Most Recent: Last Vital Signs Temp 36.4 C 03/14/18 05:00 Pulse 85 03/14/18 05:00 Resp 17 03/14/18 05:00 BP 114/68 03/14/18 05:00 Pulse Ox 94 L 03/14/18 05:00 Weight - Most Recent: 100.516 kg I&O - Last 24 hours: Intake & Output 03/13/18 03/14/18 03/14/18 22:59 06:59 14:59 Intake Total 776 600 50 Output Total 800 500 Balance -24 100 50 Lab Results - Last 24 hrs: Laboratory Results - last 24 hr 03/14/18 03/14/18 Range/Units 05:35 05:35 WBC 5.28 (4.0-11.0) K/uL RBC 3.84 L (4.50-5.90) M/uL Hgb 11.8 L (13.0-17.0) g/dL Hct 34.2 L (38.0-50.0) % MCV 89.1 (80.0-98.0) fL MCH 30.7 (27.0-32.0) pg MCHC 34.5 (31.0-37.0) g/dL RDW Std Deviation 39.8 (28.0-62.0) fl RDW Coeff of Justino 12 (11.0-15.0) % Plt Count 156 (150-400) K/uL MPV 8.50 (7.40-12.00) fL Neut % (Auto) 72.2 (48.0-80.0) % Lymph % (Auto) 15.3 L (16.0-40.0) % [place] % (Auto) 9.8 (0.0-15.0) % Eos % (Auto) 2.5 (0.0-7.0) % Baso % (Auto) 0.2 (0.0-1.5) % Neut # (Auto) 3.8 (1.4-5.7) K/uL Lymph # (Auto) 0.8 (0.6-2.4) K/uL [place] # (Auto) 0.5 (0.0-0.8) K/uL Eos # (Auto) 0.1 (0.0-0.7) K/uL Baso # (Auto) 0.0 (0.0-0.1) K/uL Nucleated RBC % 0.0 /100WBC Nucleated RBCs # 0 K/uL Sodium 141 (136-148) mmol/L Potassium 3.5 (3.5-5.1) mmol/L Chloride 109 H (98-107) mmol/L Carbon Dioxide 26.9 (21.0-32.0) mmol/L BUN 10 (7.0-18.0) mg/dL Creatinine 1.3 (0.8-1.3) mg/dL Est Cr Clr Drug Dosing 78.77 mL/min Estimated GFR (MDRD) > 60.0 ml/min Glucose 97 (74-106) mg/dL Calcium 7.9 L (8.5-10.1) mg/dL Phosphorus 3.3 (2.6-4.7) mg/dL Magnesium 1.9 (1.8-2.4) mg/dL Med Orders - Current: Current Medications Hydrocodone Bitart/Acetaminophen ([place]ad 325-5 Mg) 2 tab PO Q4H PRN PRN Reason: Pain (moderate 4-6) Last Admin: 03/14/18 07:28 Dose: 2 tab Amoxicillin (Amoxil) 1,000 mg PO Q12HR MARCIA Clarithromycin (Biaxin) 500 mg PO BID ON LICENSE OF [facility] Cyclobenzaprine HCl (Flexeril) 5 mg PO TID ON LICENSE OF [facility] Last Admin: 03/14/18 05:34 Dose: 5 mg Diphenhydramine HCl (Benadryl) 25 mg IVPUSH Q4H PRN PRN Reason: Itching Docusate Sodium (Colace) 100 mg PO BID PRN PRN Reason: Constipation Last Admin: 03/14/18 07:28 Dose: 100 mg Morphine Sulfate (Morphine) 2 mg IVPUSH Q1H PRN PRN Reason: Pain (severe 7-10) Last Admin: 03/13/18 16:16 Dose: 2 mg Multivitamins/Minerals/Vitamin C (Tab-A-Rosalino) 1 tab PO BEDTIME ON LICENSE OF [facility] Last Admin: 03/13/18 20:59 Dose: 1 tab Ondansetron HCl (Zofran) 4 mg IVPUSH Q6H PRN PRN Reason: Nausea/Vomiting Pantoprazole Sodium (Protonix) 40 mg PO BIDAC ON LICENSE OF [facility] Last Admin: 03/14/18 06:46 Dose: 40 mg Sodium Chloride (Saline Flush) 10 ml FLUSH ASDIRECTED PRN PRN Reason: Keep Vein Open Sodium Chloride (Saline Flush) 2.5 ml FLUSH ASDIRECTED PRN PRN Reason: Keep Vein Open Sucralfate (Carafate) 1 gm PO QIDACANDBED ON LICENSE OF [facility] Last Admin: 03/14/18 06:46 Dose: 1 gm Discontinued Medications Acetaminophen (Tylenol) 650 mg PO NOW ONE Stop: 03/12/18 23:04 Last Admin: 03/13/18 00:03 Dose: 650 mg Bupivacaine HCl (Sensorcaine-Mpf 0.5%) Confirm Administered Dose 20 ml .ROUTE .STK-MED ONE Stop: 03/12/18 16:55 Fentanyl (Sublimaze) Confirm Administered Dose 250 mcg .ROUTE .STK-MED ONE Stop: 03/12/18 16:39 Fentanyl (Sublimaze) Confirm Administered Dose 100 mcg .ROUTE .STK-MED ONE Stop: 03/12/18 19:45 Fentanyl (Sublimaze) 50 mcg IVPUSH Q5M PRN PRN Reason: Pain (severe 7-10) Stop: 03/13/18 19:57 Glycopyrrolate (Robinul) Confirm Administered Dose 0.4 mg .ROUTE .STK-MED ONE Stop: 03/12/18 20:21 Hydromorphone HCl (Dilaudid) 1 mg IVPUSH ONETIME ONE Stop: 03/12/18 13:42 Hydromorphone HCl (Dilaudid) 1 mg IVPUSH ONETIME ONE Stop: 03/12/18 13:49 Last Admin: 03/12/18 14:03 Dose: 1 mg Hydromorphone HCl (Dilaudid) Confirm Administered Dose 2 mg .ROUTE .STK-MED ONE Stop: 03/12/18 17:34 Sodium Chloride (Normal Saline) 1,000 mls @ 999 mls/hr IV STAT ONE Stop: 03/12/18 12:58 Last Admin: 03/12/18 12:18 Dose: 999 mls/hr Piperacillin Sod/Tazobactam (Sod 3.375 gm/ Sodium Chloride) 50 mls @ 100 mls/ hr IV ONETIME ONE Stop: 03/12/18 16:02 Last Admin: 03/12/18 15:45 Dose: 100 mls/hr Lactated Ringer's (Ringers, Lactated) 1,000 mls @ 150 mls/hr IV ASDIRECTED ON LICENSE OF [facility] Last Admin: 03/12/18 15:45 Dose: 150 mls/hr Lactated Ringer's (Ringers, Lactated) 1,000 mls @ 125 mls/hr IV ASDIRECTED ON LICENSE OF [facility] Last Admin: 03/13/18 15:16 Dose: 125 mls/hr Piperacillin Sod/Tazobactam (Sod 3.375 gm/ Sodium Chloride) 50 mls @ 100 mls/ hr IV Q8H ON LICENSE OF [facility] Last Admin: 03/14/18 07:22 Dose: 100 mls/hr Magnesium Sulfate 2 gm/ Premix 50 mls @ 50 mls/hr IV ONETIME ONE Stop: 03/13/18 08:12 Last Admin: 03/13/18 07:25 Dose: 50 mls/hr Iopamidol (Isovue Multipack-370 (76%)) 100 ml IVPUSH ONETIME STA Stop: 03/12/18 14:30 Last Admin: 03/12/18 14:37 Dose: 100 ml Ketorolac Tromethamine (Toradol) 30 mg IVPUSH ONETIME ONE Stop: 03/12/18 11:59 Last Admin: 03/12/18 12:18 Dose: 30 mg Ketorolac Tromethamine (Toradol) 10 mg PO Q6H ON LICENSE OF [facility] Stop: 03/17/18 20:46 Last Admin: 03/12/18 22:50 Dose: Not Given Lidocaine (Xylocaine-Mpf 2%) Confirm Administered Dose 5 ml .ROUTE .STK-MED ONE Stop: 03/12/18 16:38 Meperidine HCl (Demerol) 25 mg IVPUSH ONETIME ONE Stop: 03/12/18 21:14 Last Admin: 03/12/18 22:50 Dose: Not Given Midazolam HCl (Versed 1 Mg/Ml) Confirm Administered Dose 2 mg .ROUTE .STK-MED ONE Stop: 03/12/18 16:39 Midazolam HCl (Versed 1 Mg/Ml) Confirm Administered Dose 2 mg .ROUTE .STK-MED ONE Stop: 03/12/18 17:23 Morphine Sulfate (Morphine) 2 mg IVPUSH Q1H PRN PRN Reason: Pain (severe 7-10) Neostigmine Methylsulfate (Neostigmine) Confirm Administered Dose 5 mg .ROUTE .STK-MED ONE Stop: 03/12/18 20:21 Ondansetron HCl (Zofran) 4 mg IVPUSH ONETIME ONE Stop: 03/12/18 11:59 Last Admin: 03/12/18 12:19 Dose: Not Given Ondansetron HCl (Zofran) Confirm Administered Dose 4 mg .ROUTE .STK-MED ONE Stop: 03/12/18 16:38 Pantoprazole Sodium (Protonix Iv) 80 mg IVPUSH .BOLUS ONE Stop: 03/12/18 11:59 Last Admin: 03/12/18 12:18 Dose: 80 mg Propofol (Diprivan 20 Ml) Confirm Administered Dose 1,200 mg .ROUTE .STK-MED ONE Stop: 03/12/18 16:39 Propofol (Diprivan 20 Ml) Confirm Administered Dose 200 mg .ROUTE .STK-MED ONE Stop: 03/12/18 16:44 Propofol (Diprivan 20 Ml) Confirm Administered Dose 400 mg .ROUTE .STK-MED ONE Stop: 03/12/18 18:18 Propofol (Diprivan 20 Ml) Confirm Administered Dose 600 mg .ROUTE .STK-MED ONE Stop: 03/12/18 18:49 Propofol (Diprivan 20 Ml) Confirm Administered Dose 600 mg .ROUTE .STK-MED ONE Stop: 03/12/18 19:23 Propofol (Diprivan 20 Ml) Confirm Administered Dose 400 mg .ROUTE .STK-MED ONE Stop: 03/12/18 20:11 Rocuronium [place] (Zemuron) Confirm Administered Dose 100 mg .ROUTE .STK-MED ONE Stop: 03/12/18 16:38 - Exam General: Reports: Alert, Oriented HEENT: Reports: Pupils Equal, Pupils Reactive Neck: Reports: Supple Lungs: Reports: Normal Respiratory Effort Cardiovascular: Reports: Regular Rate GI/Abdominal Exam: Soft, Non-Tender, No Mass, Distended (mild) Extremities: Other (hands and feet appear slightly swollen but no pitting edema ) Wound/Incisions: Reports: Healing Well
[2018-03-14] MEDS ORDERED: Amoxicillin 500 MG Cap PO SCH (09:00)
== END 2018-03-14 13:30 | disposition home or self-care (01) | DRG 343 ==
LOC: MW.ED 11:33 → MW.SDS 16:41 → MW.ICU 20:34
PROVIDERS: ADMIT Surgery; ATTEND Surgery
PROC: 0DTJ0ZZ Resection of Appendix, Open Approach (ICD-10-PCS; principal; 2018-03-12)
PROC: 0DJD4ZZ Inspection of Lower Intestinal Tract, Percutaneous Endoscopic Approach (ICD-10-PCS; 2018-03-12)
DX: K35.80 Unspecified acute appendicitis (principal); B96.81 Helicobacter pylori [H. pylori] as the cause of diseases classified elsewhere; Z88.8 Allergy status to other drugs, medicaments and biological substances
CPT/HCPCS: 36415; 74022; 74022-26; 74177; 74177-26; 80048; 80053; 81001; 82150; 82565; 82570-QW; 83605; 83690; 83735; 84100; 84300; 84520; 85025; 85027; 86677; 88304; 93005; 94660; 96361; 96365; 96375; 99285-25; A9270-GY; C9113; J1170; J1885; J2250; J2270; J2405; J2543; J2704; J3010; J3475; J7040; J7050; J7120; Q9967

== ENCOUNTER 2018-03-19 21:20 | Emergency (ER) | payer OTHER ==
[2018-03-19] MEDS ORDERED: Sodium Chloride 0.9% 1,000 ML IV ONE (21:24)
--- NOTE | 2018-03-19 21:58 | EDM.PDOC ---
ED HPI GENERAL MEDICAL PROBLEM - General Chief Complaint: Abdominal Pain Stated Complaint: ABDOMINAL PAIN/HAD SURGERY Time Seen by Provider: 03/19/18 21:23 - History of Present Illness INITIAL COMMENTS - FREE TEXT/NARRATIVE: HISTORY AND PHYSICAL: History of present illness: Patient 37-year-old male is one week status post laparotomy for appendicitis or sensory concern of abdominal pain and distention he states he's had one bowel movement in the last 7 days that was within the last 24 hours he's had increasing discomfort and abdominal distention along with the constipation he denies fever chills denies vomiting Review of systems: As per history of present illness and below otherwise all systems reviewed and negative. Past medical history: As per history of present illness and as reviewed below otherwise noncontributory. Surgical history: As per history of present illness and as reviewed below otherwise noncontributory. Social history: No reported history of drug or alcohol abuse. Family history: As per history of present illness and as reviewed below otherwise noncontributory. Physical exam: HEENT: Atraumatic, normocephalic, pupils reactive, negative for conjunctival pallor or scleral icterus, mucous membranes moist, throat clear, neck supple, nontender, trachea midline. Lungs: Clear to auscultation, breath sounds equal bilaterally, chest nontender. Heart: S1S2, regular, negative for clicks, rubs, or JVD. Abdomen: Soft, protuberant with some nonlocalized tenderness no rebound. Negative for masses or hepatosplenomegaly. Negative for costovertebral tenderness. Pelvis: Stable nontender. Genitourinary: Deferred. Rectal: Deferred. Extremities: Atraumatic, negative for cords or calf pain. Neurovascular unremarkable. Neuro: Awake, alert, oriented. Cranial nerves II through XII unremarkable. Cerebellum unremarkable. Motor and sensory unremarkable throughout. Exam nonfocal. Diagnostics: CBC CMP lipase UA CT abdomen and pelvis with IV contrast Therapeutics: Normal saline 1 L bolus Impression: #1 observation only status post open appendectomy #2 postoperative abdominal pain #3 constipation Definitive disposition and diagnosis as appropriate pending reevaluation and review of above. RLQ Abdomen Pain Score (Numeric/FACES): 8 - Related Data Allergies Allergy/AdvReac Type Severity Reaction Status Date / Time desflurane Allergy Severe Anaphylactic Verified 03/12/18 16:04 Shock sevoflurane Allergy Severe Anaphylactic Verified 03/12/18 16:04 Shock succinylcholine Allergy Severe Anaphylactic Verified 03/12/18 16:04 Shock Home Meds: Home Meds Acetaminophen/HYDROcodone [[place] 325-5 MG] 1 tab PO Q4H #40 tablet 03/14/18 [Rx] Amoxicillin 1,000 mg PO BID #23 tab 03/14/18 [Rx] Clarithromycin [Biaxin] 500 mg PO BID #23 tablet 03/14/18 [Rx] Cyclobenzaprine [Flexeril] 5 mg PO TID PRN #30 tablet 03/14/18 [Rx] Docusate Sodium [Colace] 100 mg PO BID #14 cap 03/14/18 [Rx] Pantoprazole [ProTONIX] 40 mg PO BIDAC #60 tab.cr 03/14/18 [Rx] Sucralfate [Carafate] 1 gm PO TIDMEALS #42 tablet 03/14/18 [Rx] Past Medical History - Past Health History Medical/Surgical History: Denies Medical/Surgical History HEENT History: Reports: None Cardiovascular History: Reports: None Respiratory History: Reports: None Gastrointestinal History: Reports: Other (See Below) Genitourinary History: Reports: None Musculoskeletal History: Reports: None Neurological History: Reports: None Psychiatric History: Reports: None Endocrine/Metabolic History: Reports: Obesity/BMI 30+ Hematologic History: Reports: None Immunologic History: Reports: None Oncologic (Cancer) History: Reports: None Dermatologic History: Reports: None - Infectious Disease History Infectious Disease History: Reports: Chicken Pox - Past Surgical History GI Surgical History: Reports: Appendectomy Other GI Surgeries/Procedures: 03/12/18 Social & Family History - Family History Family Medical History: Noncontributory - Tobacco Use Smoking Status *Q: Never Smoker - Caffeine Use Caffeine Use: Reports: Energy Drinks - Recreational Drug Use Recreational Drug Use: No ED ROS GENERAL - Review of Systems Review Of Systems: ROS reveals no pertinent complaints other than HPI. ED EXAM, GENERAL - Physical Exam Exam: See Below Course - Vital Signs Text/Narrative:: Patient's emergency department course is unremarkable routine labs including CBC chemistry are negative as is urine CT abdomen and pelvis demonstrates some infiltration of fat and small fluid collection in the right pericolic gutter with enhancing margins 1.8 x 0.6 cm findings are thought to be likely related his recent appendectomy with a small postoperative hematoma versus abscesses had no fever chills or other complaints I discussed with patient and at length admission for observation and at the possibility of small postoperative abscesses in the differential diagnosis although unlikely with the clinical findings currently. I discussed case with general surgery review consultant Dr. Bolanos who agrees with discharge home he wants the patient to call him in 8 AM tomorrow morning be seen tomorrow morning in the morning for reevaluation Last Recorded V/S: Last Vital Signs Temp 36.8 C 03/19/18 23:05 Pulse 83 03/19/18 23:05 Resp 18 03/19/18 23:05 BP 141/83 H 03/19/18 23:05 Pulse Ox 96 03/19/18 23:05 - Orders/Labs/Meds Orders: Active Orders 24 hr Category Date Time Status Abdomen Pelvis w Cont [CT] Stat Exams 03/19/18 21:24 Taken UA W/MICROSCOPIC [URIN] Stat Lab 03/19/18 21:45 Ordered Labs: Laboratory Tests 03/19/18 03/19/18 03/19/18 Range/Units 21:25 21:25 21:45 WBC 8.49 (4.0-11.0) K/uL RBC 5.01 (4.50-5.90) M/uL Hgb 15.6 (13.0-17.0) g/dL Hct 44.2 (38.0-50.0) % MCV 88.2 (80.0-98.0) fL MCH 31.1 (27.0-32.0) pg MCHC 35.3 (31.0-37.0) g/dL RDW Std Deviation 39.3 (28.0-62.0) fl RDW Coeff of Justino 12 (11.0-15.0) % Plt Count 321 (150-400) K/uL MPV 8.40 (7.40-12.00) fL Add Manual Diff YES Neutrophils % (Manual) 71 (48.0-80.0) % Band Neutrophils % 2 % Lymphocytes % (Manual) 15 L (16.0-40.0) % Monocytes % (Manual) 9 (0.0-15.0) % Eosinophils % (Manual) 2 (0.0-7.0) % Metamyelocytes % 1 % Nucleated RBC % 0.0 /100WBC Absolute Seg Neuts 6.0 H (1.4-5.7) Band Neutrophils # 0.2 Lymphocytes # (Manual) 1.3 (0.6-2.4) Monocytes # (Manual) 0.8 (0.0-0.8) Eosinophils # (Manual) 0.2 (0.0-0.7) Absolute Metamyelocyte 0.1 Nucleated RBCs # 0 K/uL Sodium 137 (136-148) mmol/L Potassium 4.4 (3.5-5.1) mmol/L Chloride 100 (98-107) mmol/L Carbon Dioxide 27.9 (21.0-32.0) mmol/L BUN 10 (7.0-18.0) mg/dL Creatinine 1.5 H (0.8-1.3) mg/dL Est Cr Clr Drug Dosing 68.27 mL/min Estimated GFR (MDRD) 52.1 ml/min Glucose 100 (74-106) mg/dL Calcium 9.7 (8.5-10.1) mg/dL Total Bilirubin 0.4 (0.2-1.0) mg/dL AST 69 H (15-37) IU/L ALT 112 H (14-63) IU/L Alkaline Phosphatase 107 (46-116) U/L Total Protein 8.5 H (6.4-8.2) g/dL Albumin 3.8 (3.4-5.0) g/dL Globulin 4.7 H (2.0-3.5) g/dL Albumin/Globulin Ratio 0.8 L (1.3-2.8) Lipase 242 (73-393) U/L Urine Color YELLOW Urine Appearance CLEAR Urine pH 7.5 (5.0-8.0) Ur Specific [place] 1.010 (1.001-1.035) Urine Protein NEGATIVE (NEGATIVE) mg/dL Urine Glucose (UA) NEGATIVE (NEGATIVE) mg/dL Urine Ketones NEGATIVE (NEGATIVE) mg/dL Urine Occult Blood NEGATIVE (NEGATIVE) Urine Nitrite NEGATIVE (NEGATIVE) Urine Bilirubin NEGATIVE (NEGATIVE) Urine Urobilinogen 0.2 (<2.0) EU/dL Ur Leukocyte Esterase NEGATIVE (NEGATIVE) Urine RBC 0-1 (0-2/HPF) Urine WBC 0-1 (0-5/HPF) Ur Epithelial Cells RARE (NONE-FEW) Urine Bacteria RARE (NEGATIVE) Urine Mucus LIGHT (NONE-MOD) Meds: Medications Discontinued Medications Generic Name Dose Route Start Last Admin Trade Name Gretchen PRN Reason Stop Dose Admin Sodium Chloride 1,000 mls @ 999 mls/hr 03/19/18 21:24 03/19/18 21:38 Normal Saline IV 03/19/18 22:24 999 mls/hr STAT ONE Administration Iopamidol 80 ml 03/19/18 23:04 03/19/18 23:05 Isovue-370 (76%) IVPUSH 03/19/18 23:05 80 ml ONETIME STA Administration Departure - Departure Time of Disposition: 23:51 Disposition: Home, Self-Care 01 Condition: Good Clinical Impression: Postoperative abdominal pain - Discharge Information Referrals: Kenrick Akers MD [Primary Care Provider] - Forms: ED Department Discharge Additional Instructions: The following information is given to patients seen in the emergency department who are being discharged to home. This information is to outline your options for follow-up care. We provide all patients seen in our emergency department with a follow-up referral. The need for follow-up, as well as the timing and circumstances, are variable depending upon the specifics of your emergency department visit. If you don't have a primary care physician on staff, we will provide you with a referral. We always advise you to contact your personal physician following an emergency department visit to inform them of the circumstance of the visit and for follow-up with them and/or the need for any referrals to a consulting specialist. The emergency department will also refer you to a specialist when appropriate. This referral assures that you have the opportunity for followup care with a specialist. All of these measure are taken in an effort to provide you with optimal care, which includes your followup. Under all circumstances we always encourage you to contact your private physician who remains a resource for coordinating your care. When calling for followup care, please make the office aware that this follow-up is from your recent emergency room visit. If for any reason you are refused follow-up, please contact the [facility] emergency department at and asked to speak to the emergency department charge nurse [facility] - General Surgery Professional Building [address] [place] [address], [address] [place] [address] . Call at 8 AM tomorrow clinic for reevaluation with general surgery return as needed as discussed - My Orders Last 24 Hours: My Active Orders 03/19/18 21:24 Abdomen Pelvis w Cont [CT] Stat 03/19/18 21:45 UA W/MICROSCOPIC [URIN] Stat - Assessment/Plan Last 24 Hours: My Active Orders 03/19/18 21:24 Abdomen Pelvis w Cont [CT] Stat 03/19/18 21:45 UA W/MICROSCOPIC [URIN] Stat
[2018-03-19] MEDS ORDERED: Iopamidol 755 Mg/ML 100 ML Bottle IVPUSH STA (23:04)
--- NOTE | 2018-03-20 16:45 | CT ---
EXAM DATE: 03/19/18 PATIENT'S AGE: 37 Patient: SUKI SLADE Facility: [place], [place] Site . Site : 1980 Study: CT Abdomen/Pelvis W SKYLER [id number]/9/2018 11:07:07 PM Ordering Physician: Estrella Beaver Final Report: INDICATION: Abdominal pain, bloating, unable to defecate since yesterday. Status post appendectomy 1 week ago TECHNIQUE: CT Abdomen and pelvis with i.v. contrast. Coronal and sagittal reformats were obtained. CONTRAST: 80 mL Isovue 370 COMPARISON: 03/12/2018 FINDINGS: Lower chest: Moderate segmental atelectasis is present in the posterior basal segments of both lower lobes with air bronchograms. Liver: Unremarkable. Spleen: Unremarkable. Pancreas: Unremarkable. Gallbladder: Unremarkable. Kidney: Unremarkable. No kidney or ureteral stones or obstruction seen. Adrenal: Unremarkable. Bowel: The colon is fluid filled to the level of the sigmoid. This is nonspecific and can be the result of any cause of diarrhea. The patient is status post appendectomy. In the right pericolic gutter, there is infiltration of the fat and a small fluid collection with enhancing margins measuring 1.8 x 0.6 cm. Vascular: Unremarkable. Lymph: Mild right inguinal adenopathy is noted with lymph nodes measuring up to 1.4 cm. Peritoneum: Unremarkable. No pneumoperitoneum is seen. No significant ascites is noted. Pelvis: Unremarkable. Soft tissue: There is a fluid-filled defect in the right lateral abdominal wall involving the internal oblique muscle measuring 2 x 2.7 cm. Bone: Unremarkable for age. IMPRESSIONS: 1. Moderate segmental atelectasis is present in the posterior basal segments of both lower lobes with air bronchograms. 2. In the right pericolic gutter, there is infiltration of the fat and a small fluid collection with enhancing margins measuring 1.8 x 0.6 cm. Findings likely related to recent appendectomy with a small postoperative hematoma or abscess. Dictated by José Miguel Carter MD @ 03/19/2018 11:34:00 PM Please note that all CT scans at this facility use dose modulation, iterative reconstruction, and/or weight-based dosing when appropriate to reduce radiation dose to as low as reasonably achievable. Dictated by: José Miguel Carter MD @ 03/19/2018 23:34:12 (Electronic Signature) Report Signed by Proxy. [facility]
== END 2018-03-20 00:10 | disposition home or self-care (01) ==
LOC: MW.ED 21:20
DX: G89.18 Other acute postprocedural pain (principal); K59.00 Constipation, unspecified; R10.31 Right lower quadrant pain; E66.9 Obesity, unspecified; Z98.890 Other specified postprocedural states
CPT/HCPCS: 36415; 74177; 80053; 81001; 83690; 85025; 96360; 99284; J7040; Q9967

== ENCOUNTER 2019-01-18 09:06 | Day surgery (SDC) | payer OTHER ==
[~2019-01-18 09:06] MED LIST: Lactated Ringers 1,000 ML IV SCH; Lidocaine 2% 5 ML SDV ONE; Midazolam 1 MG/ML 2 ML SDV ONE; Propofol 200 MG/20 ML SDV ONE; fentaNYL 100 MCG/2 ML SDV ONE
--- NOTE | 2019-01-18 10:05 | PCM.PREANE ---
Preanesthetic Assessment - Anesthesia/Transfusion/Family Hx Anesthesia History: No Prior Anesthesia Other Type of Anesthesia Reaction Comment: "family hx of succinycholine allergy " Family History of Anesthesia Reaction: No Transfusion History: No Prior Transfusion(s) Intubation History: Unknown - Review of Systems General: No Symptoms Pulmonary: No Symptoms Cardiovascular: No Symptoms Gastrointestinal: Abdominal Pain, Difficulty Swallowing, Hematochezia, Melena Neurological: No Symptoms Other: Reports: None - Physical Assessment Height: 1.78 m Weight: 95.254 kg ASA Class: 2 Mental Status: Alert & Oriented x3 Airway Class: Mallampati = 2 Dentition: Reports: Normal Dentition Thyro-Mental Finger Breadths: 2 Mouth Opening Finger Breadths: 3 ROM/Head Extension: Full Lungs: Clear to Auscultation, Normal Respiratory Effort Cardiovascular: Regular Rate, Regular Rhythm - Allergies Allergies/Adverse Reactions: Allergies Allergy/AdvReac Type Severity Reaction Status Date / Time desflurane Allergy Severe Other Verified 01/15/19 10:01 sevoflurane Allergy Severe Other Verified 01/15/19 10:01 succinylcholine Allergy Severe Other Verified 01/15/19 10:01 - Blood Blood Available: No - Anesthesia Plan Pre-Op Medication Ordered: None - Acknowledgements Anesthesia Type Planned: MAC Pt an Appropriate Candidate for the Planned Anesthesia: Yes Alternatives and Risks of Anesthesia Discussed w Pt/Guardian: Yes Pt/Guardian Understands and Agrees with Anesthesia Plan: Yes PreAnesthesia Questionnaire - Past Health History Medical/Surgical History: Denies Medical/Surgical History HEENT History: Reports: Other (See Below) Other HEENT History: wears glasses Cardiovascular History: Reports: None Respiratory History: Reports: None Gastrointestinal History: Reports: GERD Genitourinary History: Reports: None Musculoskeletal History: Reports: Back Pain, Chronic Neurological History: Reports: None Psychiatric History: Reports: None Endocrine/Metabolic History: Reports: Obesity/BMI 30+ Hematologic History: Reports: None Immunologic History: Reports: None Oncologic (Cancer) History: Reports: None Dermatologic History: Reports: None - Infectious Disease History Infectious Disease History: Reports: Chicken Pox - Past Surgical History Head Surgeries/Procedures: Reports: None HEENT Surgical History: Reports: None, Tonsillectomy Cardiovascular Surgical History: Reports: None Respiratory Surgical History: Reports: None GI Surgical History: Reports: Appendectomy Male Surgical History: Reports: None Endocrine Surgical History: Reports: None Neurological Surgical History: Reports: None Musculoskeletal Surgical History: Reports: None Dermatological Surgical History: Reports: None - SUBSTANCE USE Smoking Status *Q: Never Smoker Recreational Drug Use History: No - HOME MEDS Home Medications: Home Meds Pantoprazole [ProTONIX] 40 mg PO DAILY 01/15/19 [History] - CURRENT (IN HOUSE) MEDS Current Meds: Current Medications Lactated Ringer's (Ringers, Lactated) 1,000 mls @ 125 mls/hr IV ASDIRECTED MARCIA Discontinued Medications Fentanyl (Sublimaze) Confirm Administered Dose 100 mcg .ROUTE .STK-MED ONE Stop: 01/18/19 07:11 Lidocaine (Xylocaine-Mpf 2%) Confirm Administered Dose 5 ml .ROUTE .STK-MED ONE Stop: 01/18/19 07:11 Midazolam HCl (Versed 1 Mg/Ml) Confirm Administered Dose 2 mg .ROUTE .STK-MED ONE Stop: 01/18/19 07:11 Propofol (Diprivan 20 Ml) Confirm Administered Dose 200 mg .ROUTE .STK-MED ONE Stop: 01/18/19 07:11
[2019-01-18] MEDS ORDERED: Propofol 200 MG/20 ML SDV ONE (10:44)
--- NOTE | 2019-01-18 11:27 | PCM.OPNOTE ---
- General Post-Op/Procedure Note Date of Surgery/Procedure: 01/18/19 Operative Procedure(s): egd w bx. colonoscopy Findings: see dict [id number] Pre Op Diagnosis: BRBPR and abd pain Post-Op Diagnosis: Same Anesthesia Technique: Moderate Sedation Primary Surgeon: Cole Bolanos Pathology: sent Complications: None Condition: Good
--- NOTE | 2019-01-18 12:03 | PCM48HPAN ---
Post Anesthesia Note - EVALUATION WITHIN 48HRS OF ANESTHETIC Vital Signs in Normal Range: Yes Patient Participated in Evaluation: Yes Respiratory Function Stable: Yes Airway Patent: Yes Cardiovascular Function Stable: Yes Hydration Status Stable: Yes Pain Control Satisfactory: Yes Nausea and Vomiting Control Satisfactory: Yes Mental Status Recovered: Yes Resp Rate: 13 - COMMENTS/OBSERVATIONS Free Text/Narrative:: no anesthesia problems
--- NOTE | 2019-01-18 12:07 | OR ---
SURGEON: Cole Bolanos MD DATE OF PROCEDURE: 01/18/2019 PREOPERATIVE DIAGNOSES: Abdominal pain and bright red blood per rectum. POSTOPERATIVE DIAGNOSES: 1. Esophagogastroduodenoscopy diagnoses are gastroesophageal reflux disease and esophagitis, moderate. 2. Colonoscopy diagnosis is hemorrhoids. PROCEDURES PERFORMED: 1. Esophagogastroduodenoscopy with biopsy. 2. Colonoscopy. PRIMARY SURGEON: Cole Bolanos MD. COMPLICATIONS: None. DESCRIPTION OF PROCEDURE: EGD: The patient was taken to the endoscopy room, and with the ALFALFA DEHYDRATOR OPERATOR, Diprivan was administered. A well-lubricated EGD scope was gently inserted through the oropharynx, down the esophagus, passing through the gastroesophageal junction, into the stomach. The mucosa was examined upon the passage. Any etiology will be noted. Once in the stomach, we continued to advance to the distal antrum, passed through the pylorus into the second portion of the duodenum. Again, the mucosa was examined for any abnormality and etiology. The scope was then retrieved back to the stomach and then retroflexed to look at the fundus of the stomach. If a biopsy was indicated, we will biopsy the antrum, body, and gastroesophageal junction. The air will be sucked out while the scope is retrieved to reduce the patient's discomfort. The patient tolerated the procedure well. There were no intraoperative complications. Dr. Bolanos was present through the whole procedure. Prior to surgery, a time-out had been called, the patient identified, procedure identified and antibiotic administered. The patient was taken to the endoscopy room. A time out was called, patient identified, and procedure identified. Diprivan was then administrated. Patient went from awake to sleep, hearing doctor talking or door closing is normal. Perineum inspection and digital examination were then performed. A well- lubricated colonoscope was gently inserted through the rectum, advanced past the rectosigmoid junction, the descending colon, splenic flexure, transverse colon, hepatic flexure, ascending colon, arrived to the cecum. Cecum was identified as dictated in the finding. Then the scope was carefully withdrawn while attention was paid to the mucosal surface for any abnormality. Air will be sucked out during the scope withdrawal. At the rectum, retroflexed to examine any rectal diseases, fistula or hemorrhoids. Patient tolerated procedure well. There were no intraoperative complications, and Dr. Bolanos was present throughout the whole procedure. FINDINGS: EGD findings: 1. The patient is easily sedated with ALFALFA DEHYDRATOR OPERATOR and Diprivan, the patient is soundly snoring. 2. Oropharynx and proximal esophagus free of disease. GE junction at 35 to 40 has a flame-like structure, such as a flame-like, salmon-colored change, consistent with moderate acid reflux. In some area of the esophagus, almost like esophagitis, but there is no danitza ulcer or bleeding observed. Gastric rugae normal in appearance, and antrum is mildly inflamed. Duodenum is grossly normal in appearance. Scope retrieved back to the stomach, retroflexed to look at the fundus of stomach. There is no hiatal hernia. Biopsy done at antrum, body, and GE junction at 40 and GE junction at 35. The one at 35 has esophagus, the one at 40 has salmon-colored change, so two biopsies done, and sucked out the gas while scope pulling out. Colonoscopy findings: 1. The patient is easily sedated with ALFALFA DEHYDRATOR OPERATOR and Diprivan, the patient is soundly snoring. 2. Bowel prep is average to good, not much liquid stool, very little, no semi- formed stool. 3. Colon is rather straightforward. Cecum indicated by ileocecal fold, one-to- one indentation, appendiceal orifice. Light emittance is not observed. Mucosa was examined upon scope pulling out and with some irrigation. The patient does not have diverticulosis, polyp, mass, growth, inflammation, stricture, ulceration, AV malformation, none of those. The patient has mild internal hemorrhoids and no external hemorrhoids. The patient would benefit from a repeat colonoscopy in 10 years from today or if clinically indicated otherwise. LURDES / JAIDA /[id number]
== END 2019-01-18 12:09 | disposition home or self-care (01) ==
LOC: MW.SDS 09:06
PROVIDERS: ATTEND Surgery
DX: K62.5 Hemorrhage of anus and rectum (principal); K64.8 Other hemorrhoids; K29.50 Unspecified chronic gastritis without bleeding; K21.0 Gastro-esophageal reflux disease with esophagitis; K31.89 Other diseases of stomach and duodenum; K22.8 Other specified diseases of esophagus; E66.3 Overweight; Z68.30 Body mass index [BMI] 30.0-30.9, adult
CPT/HCPCS: 43239; 45378; 88305; 88312; J2001; J2250; J2704; J3010; J7120; 00813